=== PATIENT | male | born 1985 | race Asian ===

== ENCOUNTER 2017-02-04 19:02 | Emergency (ER) | payer MEDICARE, OTHER ==
[~2017-02-04 19:02] MED LIST: BENZ1TAB PO; CARB200T16 PO; CETI5SOL PO; FLUO-1 PO; MONT10 PO; RISP0.5T2 PO; TRAZ100 PO
[2017-02-04] MEDS ORDERED: LORazepam 1 MG TAB PO ONE (19:30)
[2017-02-04 19:33] VITALS: BP 173/79; PULSE 91; RESP 22; TEMP 98; O2SAT 99
[2017-02-04] MEDS ORDERED: RISP0.5T20 PO (19:49)
--- NOTE | 2017-02-04 20:34 | PD ---
HPI Chief Complaint: Psychiatric Symptoms Time Seen by Provider: 20:29 Travel History International Travel<30 days: No Contact w/Intl Traveler<30days: No Traveled to known affect area: No History of Present Illness HPI 31-year-old male that presents to the ED for evaluation of Rousseau act. Patient was Onelia acted by police after apparently he got agitated at the detention where he stays and he apparently was breaking the house and throwing things at people. Police was contacted and because he was being aggressive towards staff and other people he was Rousseau acted for the safety of other people. Patient has a chronic history of autism as well as mental retardation. Patient has the mental capacity for 3-year-old. Patient appears to be no acute distress. Complains of no pain. History is limited because of his mental disability. He is pleasant and cooperative with staff and police here in the ED. He has not shown any violence or aggressiveness towards anybody. Adoptive parents came and gave us the same story. Again history is limited because of patient's mental status but this appears to have happened yesterday. Appears to be moderate. PFSH Past Medical History Psychiatric: Yes (AUTISM AND MENTAL RETARDATION) Seizures: Yes Social History Alcohol Use: No Tobacco Use: No Substance Use: No Allergies-Medications (Allergen,Severity, Reaction): Coded Allergies: Biaxin (Verified Allergy, Mild, 02/04/17) Dextromethorphan (Verified Allergy, Mild, 02/04/17) Pseudoephedrine (Verified Allergy, Mild, 02/04/17) Ritalin (Verified Allergy, Mild, 02/04/17) Reported Meds & Prescriptions Reported Meds & Active Scripts Active Reported Risperdal (Risperidone) 0.5 Mg Tab 0.5 Mg PO 1PM Trazodone HCl 100 Mg Tab 100 Mg PO HS Cetirizine Hcl Allergy Ch (Cetirizine HCl) 5 Mg/5 Ml Georgina 10 PO DAILY Tegretol (Carbamazepine) 200 Mg Tab 400 Mg PO BID Benztropine Mesylate 1 Mg Tab 1 Mg PO DAILY Montelukast Sodium 10 Mg Tab 10 Mg PO HS Prozac (Fluoxetine HCl) 10 Mg Cap 10 PO DAILY Risperdal (Risperidone) 0.5 Mg Tab 1 Mg PO BID Review of Systems ROS Limitations: Poor Historian Except as stated in HPI: all other systems reviewed are Neg Physical Exam Exam Limitations: Poor Historian Narrative GENERAL: SKIN: Warm and dry. HEAD: Atraumatic. Normocephalic. EYES: Pupils equal and round. No scleral icterus. No injection or drainage. ENT: No nasal bleeding or discharge. Mucous membranes pink and moist. Tongue is midline. No uvula deviation. NECK: Trachea midline. No JVD. CARDIOVASCULAR: Regular rate and rhythm. No murmurs, S3, S4. RESPIRATORY: No accessory muscle use. Clear to auscultation. Breath sounds equal bilaterally. GASTROINTESTINAL: Abdomen soft, non-tender, nondistended. Hepatic and splenic margins not palpable. MUSCULOSKELETAL: Extremities without clubbing, cyanosis, or edema. No obvious deformities. Full range of motion of the upper and lower extremities bilaterally. 2+ pulses bilaterally. NEUROLOGICAL: Awake and alert. No obvious cranial nerve deficits. Motor grossly within normal limits. Five out of 5 muscle strength in the arms and legs. Normal speech. PSYCHIATRIC: Autistic mood and affect; insight and judgment not present Data Data Last Documented VS Vital Signs Date Time Temp Pulse Resp B/P Pulse Ox O2 Delivery O2 Flow Rate FiO2 02/04/17 21:44 88 20 152/76 99 Room Air 02/04/17 19:33 98.0 Orders Complete Blood Count With Diff (02/04/17 19:17) Comprehensive Metabolic Panel (02/04/17 19:17) Psych Screen (02/04/17 19:17) Drug Screen, Random Urine (02/04/17 19:17) ^ Sitter (02/04/17 19:20) Lorazepam (Ativan) (02/04/17 19:30) Labs Laboratory Tests Test 02/04/17 20:35 White Blood Count 6.9 TH/MM3 Red Blood Count 4.71 MIL/MM3 Hemoglobin 14.6 GM/DL Hematocrit 42.2 % Mean Corpuscular Volume 89.6 FL Mean Corpuscular Hemoglobin 31.0 PG Mean Corpuscular Hemoglobin 34.6 % Concent Red Cell Distribution Width 12.8 % Platelet Count 166 TH/MM3 Mean Platelet Volume 8.3 FL Neutrophils (%) (Auto) 60.2 % Lymphocytes (%) (Auto) 29.2 % Monocytes (%) (Auto) 8.4 % Eosinophils (%) (Auto) 1.7 % Basophils (%) (Auto) 0.5 % Neutrophils # (Auto) 4.1 TH/MM3 Lymphocytes # (Auto) 2.0 TH/MM3 Monocytes # (Auto) 0.6 TH/MM3 Eosinophils # (Auto) 0.1 TH/MM3 Basophils # (Auto) 0.0 TH/MM3 CBC Comment DIFF FINAL Differential Comment Sodium Level 140 MEQ/L Potassium Level 3.9 MEQ/L Chloride Level 104 MEQ/L Carbon Dioxide Level 29.1 MEQ/L Anion Gap 7 MEQ/L Blood Urea Nitrogen 15 MG/DL Creatinine 0.91 MG/DL Estimat Glomerular Filtration 96 ML/MIN Rate Random Glucose 97 MG/DL Calcium Level 8.7 MG/DL Total Bilirubin 0.2 MG/DL Aspartate Amino Transf 27 U/L (AST/SGOT) Alanine Aminotransferase 32 U/L (ALT/SGPT) Alkaline Phosphatase 117 U/L Total Protein 7.5 GM/DL Albumin 4.1 GM/DL MDM Medical Decision Making Medical Screen Exam Complete: Yes Emergency Medical Condition: Yes Medical Record Reviewed: Yes Interpretation(s) CBC & BMP Diagram 02/04/17 20:35 LFTs WNL Differential Diagnosis Depression versus suicidal ideation versus anxiety versus adjustment disorder versus mood disorder versus bipolar disorder versus schizophrenia versus paranoid disorder versus psychosis versus substance abuse versus alcohol abuse versus alcohol induced psychosis versus homicidality addition versus cutting versus personality disorder Narrative Course 31-year-old male that presents to the family psychiatric illness. Patient was properly examined and was found to have signs and symptoms consistent with appears to be tachetic illness. No sign of acute medical distress. Labs were drawn. Patient was medically cleared. Okay to be seen by psych. Patient was given Ativan to help calm the patient down. He has not been aggressive. Mental health screening was discussed with the patient. Diagnosis Primary Impression: Adjustment disorder with disturbance of conduct Javier Delaney Feb 04, 2017 20:33
[2017-02-04 20:50] LABS: AUTOMATED NEUTROPHIL # 4.1 TH/MM3 (1.8-7.7); BASOPHIL % 0.5 % (0.0-2.0); EOSINOPHIL # 0.1 TH/MM3 (0-0.4); EOSINOPHIL % 1.7 % (0.0-4.0); HEMATOCRIT 42.2 % (39.0-51.0); HEMO FLAGS DIFF FINAL; LYMPH % 29.2 % (9.0-44.0); MEAN CELL VOLUME 89.6 FL (80.0-100.0); MEAN CORPUSCULAR HGB CONC 34.6 % (32.0-36.0); MONO % 8.4 % (0.0-8.0); NEUT % 60.2 % (16.0-70.0); PLATELET COUNT 166 TH/MM3 (150-450); RED BLOOD COUNT 4.71 MIL/MM3 (4.50-5.90); RED CELL DISTRIBUTION WIDTH 12.8 % (11.6-17.2); WHITE BLOOD COUNT 6.9 TH/MM3 (4.0-11.0)
[2017-02-04 21:26] LABS: ALKALINE PHOSPHATASE 117 U/L (45-117); ALT (GPT) 32 U/L (12-78); ANION GAP 7 MEQ/L (5-15); AST (GOT) 27 U/L (15-37); BICARBONATE 29.1 MEQ/L (21.0-32.0); BLOOD UREA NITROGEN 15 MG/DL (7-18); CHLORIDE 104 MEQ/L (98-107); GLOMERULAR FILTRATION RATE 96 ML/MIN (>89); SODIUM (NA) 140 MEQ/L (136-145); TOTAL BILIRUBIN ADULT 0.2 MG/DL (0.2-1.0)
[2017-02-04 21:27] LABS: POTASSIUM 3.9 MEQ/L (3.5-5.1)
[2017-02-04 21:44] VITALS: BP 152/76; PULSE 88; RESP 20; O2SAT 99
[2017-02-04] MEDS ORDERED: traZODone HCL 100 MG TAB PO ONE (23:00)
--- NOTE | 2017-02-04 23:44 | PD ---
Data Data Last Documented VS Vital Signs Date Time Temp Pulse Resp B/P Pulse Ox O2 Delivery O2 Flow Rate FiO2 02/04/17 21:44 88 20 152/76 99 Room Air 02/04/17 19:33 98.0 Orders Complete Blood Count With Diff (02/04/17 19:17) Comprehensive Metabolic Panel (02/04/17 19:17) Psych Screen (02/04/17 19:17) Drug Screen, Random Urine (02/04/17 19:17) ^ Sitter (02/04/17 19:20) Lorazepam (Ativan) (02/04/17 19:30) Trazodone (Desyrel) (02/04/17 23:00) Diet Regular Basic (02/05/17 Breakfast) Labs Laboratory Tests Test 02/04/17 20:35 White Blood Count 6.9 TH/MM3 Red Blood Count 4.71 MIL/MM3 Hemoglobin 14.6 GM/DL Hematocrit 42.2 % Mean Corpuscular Volume 89.6 FL Mean Corpuscular Hemoglobin 31.0 PG Mean Corpuscular Hemoglobin 34.6 % Concent Red Cell Distribution Width 12.8 % Platelet Count 166 TH/MM3 Mean Platelet Volume 8.3 FL Neutrophils (%) (Auto) 60.2 % Lymphocytes (%) (Auto) 29.2 % Monocytes (%) (Auto) 8.4 % Eosinophils (%) (Auto) 1.7 % Basophils (%) (Auto) 0.5 % Neutrophils # (Auto) 4.1 TH/MM3 Lymphocytes # (Auto) 2.0 TH/MM3 Monocytes # (Auto) 0.6 TH/MM3 Eosinophils # (Auto) 0.1 TH/MM3 Basophils # (Auto) 0.0 TH/MM3 CBC Comment DIFF FINAL Differential Comment Sodium Level 140 MEQ/L Potassium Level 3.9 MEQ/L Chloride Level 104 MEQ/L Carbon Dioxide Level 29.1 MEQ/L Anion Gap 7 MEQ/L Blood Urea Nitrogen 15 MG/DL Creatinine 0.91 MG/DL Estimat Glomerular Filtration 96 ML/MIN Rate Random Glucose 97 MG/DL Calcium Level 8.7 MG/DL Total Bilirubin 0.2 MG/DL Aspartate Amino Transf 27 U/L (AST/SGOT) Alanine Aminotransferase 32 U/L (ALT/SGPT) Alkaline Phosphatase 117 U/L Total Protein 7.5 GM/DL Albumin 4.1 GM/DL [facility] Supervised Visit with GILLIAN: Yes Narrative Course Patient was initially cleared for psychiatric evaluation by Javier Delaney. Patient was being taken the J pod and when taken into the room again became very anxious. He was given Ativan by mouth prior to going over there. He was taken back to [facility] where he is much more comfortable. Patient briefly examined by me, severely mentally handicapped that he is quite pleasant. Has a mentality of a school-aged child. Appears well and in no obvious distress. No was no bruising seen. Patient does have trazodone on his bedtime medication reconciliation. He was given 100 mg of by mouth trazodone. We'll allow him to stay in [facility] for the night as he is a poor candidate for J pod. Remains medically cleared for psychiatric evaluation disposition. Diagnosis Primary Impression: Adjustment disorder with disturbance of conduct Condition: Stable Min Bender MD Feb 04, 2017 23:44
[2017-02-05 09:02] VITALS: BP 145/81; PULSE 84; RESP 16; TEMP 97.8; O2SAT 97
[2017-02-05 13:05] VITALS: BP 137/78; PULSE 87; RESP 18; O2SAT 99
== END 2017-02-05 13:24 ==
LOC: NEPC 19:02
DX: F43.24 Adjustment disorder with disturbance of conduct (principal)
CPT/HCPCS: 80053; 85025; 99283

== ENCOUNTER 2017-09-02 17:41 | Emergency (ER) | payer MEDICARE, OTHER ==
[~2017-09-02] VITALS: Ht 175.3 cm; Wt 65.0 kg
[~2017-09-02 17:41] MED LIST changes: -BENZ1TAB PO; -CARB200T16 PO; +CETI10CA3 PO; -CETI5SOL PO; -FLUO-1 PO; -MONT10 PO; +MONT10TA2 PO; +PROZ20CA11 PO; -RISP0.5T2 PO; +SERO100T PO; +SERO50TA PO; +TEGR400T PO; -TRAZ100 PO; +TRAZ100T10 PO
--- NOTE | 2017-09-02 18:57 | PD ---
HPI Chief Complaint: Psychiatric Symptoms Time Seen by Provider: 17:48 Travel History International Travel<30 days: No Contact w/Intl Traveler<30days: No Traveled to known affect area: No History of Present Illness HPI 32-year-old, just discharged from psychiatry, reported history of TBI to me, documented as a ASD. Patient reportedly violent at the [facility] destroyed property placed under Rousseau act again by PD. No complaints. History Past Medical History Narrative Medical Autism spectrum disorder Past Surgical History Surgical History: Unable to Obtain Social History Alcohol Use: No (UNABLE TO ASSESS) Tobacco Use: No (UNABLE TO ASSESS) Allergies-Medications (Allergen,Severity, Reaction): Coded Allergies: clarithromycin (Unverified Allergy, Mild, 09/02/17) dextromethorphan (Unverified Allergy, Mild, 09/02/17) methylphenidate (Unverified Allergy, Mild, 09/02/17) pseudoephedrine (Unverified Allergy, Mild, 09/02/17) Reported Meds & Prescriptions Reported Meds & Active Scripts Active Reported Prozac (Fluoxetine HCl) 20 Mg Cap 20 Mg PO DAILY Seroquel (Quetiapine Fumarate) 100 Mg Tab 100 Mg PO BID PT IS TO TAKE 100 MG AFTERNOON AROUNG 1PM AND 100MG AT 2000 Seroquel (Quetiapine Fumarate) 50 Mg Tab 50 Mg PO DAILY PT IS TO TAKE 50 IN THE MORNING Trazodone (Trazodone HCl) 100 Mg Tablet 100 Mg PO HS Tegretol-Xr 12 HR (Carbamazepine) 400 Mg Tab 400 Mg PO Q12HR Zyrtec (Cetirizine HCl) 10 Mg Capsule 1 Cap PO DAILY Singulair (Montelukast Sodium) 10 Mg Tab 10 Mg PO DAILY Review of Systems ROS Limitations: Clinical Condition Physical Exam Narrative GENERAL: 32-year-old man, generally well-appearing, pacing, all active but not agitated. SKIN: Focused skin assessment warm/dry. HEAD: Atraumatic. Normocephalic. EYES: Pupils equal and round. No scleral icterus. No injection or drainage. ENT: No nasal bleeding or discharge. Mucous membranes pink and moist. NECK: Trachea midline. No JVD. CARDIOVASCULAR: Warm and well perfused. RESPIRATORY: Normal rate and effort. GASTROINTESTINAL: Abdomen soft, non-tender, nondistended. Hepatic and splenic margins not palpable. MUSCULOSKELETAL: No obvious deformities. No clubbing. No cyanosis. No edema. NEUROLOGICAL: Awake and alert. Confused, unable to interact appropriately. No obvious cranial nerve deficits. Motor grossly within normal limits. Normal speech. Data Data Orders Orders Carbamazepine (Tegretol) (09/02/17 21:00) Trazodone (Desyrel) (09/02/17 21:00) Quetiapine (Seroquel) (09/03/17 18:00) Quetiapine (Seroquel) (09/02/17 20:00) Quetiapine (Seroquel) (09/03/17 09:00) Fluoxetine (Prozac) (09/03/17 09:00) Diet Regular Basic (09/02/17 Dinner) Psych Screen (09/02/17 18:38) [facility] Medical Decision Making Medical Screen Exam Complete: Yes Emergency Medical Condition: Yes Differential Diagnosis Autism spectrum disorder with behavioral disturbance, agitation, other Narrative Course 32-year-old male with autism spectrum disorder behavior disturbance or presents with aggressive behavior. Calm and cooperative now. Reportedly extended stay recently in the ED with disposition decision. Report was that his [facility] wouldn't take him back until he was seen by Dr. Medina and had his medications adjusted. Reportedly Dr. Mcdowell did adjust his medications and the [facility] agreed to take him back but he is back now. He has no somatic complaints. I tried to call Dr. Salomon who I believe it seen him earlier today. There is no answer. J pod we'll try to contact psychiatry to see if you've a candidate for admission now, otherwise psych screen and further evaluation. Diagnosis Primary Impression: Behavior disturbance Kun Robles MD Sep 02, 2017 18:57
[2017-09-02] MEDS ORDERED: QUEtiapine FUMARATE 100 MG TAB PO SCH (20:00)
[2017-09-02] MEDS: carBAMazepine 200 MG TAB PO SCH (21:06)
[2017-09-02] MEDS: traZODone HCL 100 MG TAB PO SCH (21:06)
[2017-09-02 21:18] VITALS: BP 114/73; PULSE 88; RESP 18; TEMP 97; O2SAT 99
[2017-09-03] MEDS ORDERED: FLUoxetine HCL 20 MG CAP PO SCH (09:00)
[2017-09-03] MEDS ORDERED: QUEtiapine FUMARATE 25 MG TAB PO SCH (09:00)
[2017-09-03] MEDS: carBAMazepine 200 MG TAB PO SCH ×2 (09:16→21:00)
--- NOTE | 2017-09-03 10:08 | PD ---
History of Present Illness Chief Complaint: Psychiatric Symptoms Time Seen by Provider: 10:00 Travel History International Travel<30 Days: No Contact w/Intl Traveler<30days: No Known affected area: No Legal Status Legal Status: Rousseau Act Rousseau Act Signed By: Sandie Mendez History of Present Illness: Inappropriate Rousseau act of a developmentally disabled person who was here yesterday. Apparently the [place] [facility] where he resides continues to want to get rid of him and has him Rousseau acted. Patient is not suicidal or homicidal or psychotic. His cognition is baseline. According to Rousseau act law, the civil commitment of someone with a primary issue of mental retardation is inappropriate. PFSH Past Medical History Depression: Yes Psychiatric: Yes (AUTISM AND MENTAL RETARDATION) Seizures: Yes Past Surgical History Surgical History: Unable to Obtain Psychiatric History Psychiatric History Hx Psychiatric Treatment: HX: INTELLECTUAL DISABILITY History of Inpatient Treatment: No Guns or firearms in home: No Social History Hx Alcohol Use: No (UNABLE TO ASSESS) Hx Tobacco Use: No (UNABLE TO ASSESS) Hx Substance Use: No Hx of Substance Use Treatment: No Allergies-Medications (Allergen,Severity, Reaction): Coded Allergies: clarithromycin (Unverified Allergy, Mild, 09/02/17) dextromethorphan (Unverified Allergy, Mild, 09/02/17) methylphenidate (Unverified Allergy, Mild, 09/02/17) pseudoephedrine (Unverified Allergy, Mild, 09/02/17) Reported Meds & Prescriptions Reported Meds & Active Scripts Active Reported Prozac (Fluoxetine HCl) 20 Mg Cap 20 Mg PO DAILY Seroquel (Quetiapine Fumarate) 100 Mg Tab 100 Mg PO BID PT IS TO TAKE 100 MG AFTERNOON AROUNG 1PM AND 100MG AT 2000 Seroquel (Quetiapine Fumarate) 50 Mg Tab 50 Mg PO DAILY PT IS TO TAKE 50 IN THE MORNING Trazodone (Trazodone HCl) 100 Mg Tablet 100 Mg PO HS Tegretol-Xr 12 HR (Carbamazepine) 400 Mg Tab 400 Mg PO Q12HR Zyrtec (Cetirizine HCl) 10 Mg Capsule 1 Cap PO DAILY Singulair (Montelukast Sodium) 10 Mg Tab 10 Mg PO DAILY Review of Systems Except as stated in HPI: all other systems reviewed are Neg Mental Status Examination Appearance: Appropriate Consciousness: Alert Orientation: Person, Place Motor Activity: Normal gait Speech: Other Language: Other Fund of Knowledge: Poor Attention and Concentration: Other Memory: Impaired Mood: Appropriate Affect: Appropriate Thought Process & Associations: Intact Thought Content: Appropriate Hallucination Type: None Delusion Type: None Suicidal Ideation: No Suicidal Plan: No Suicidal Intention: No Homicidal Ideation: No Homicidal Plan: No Homicidal Intention: No Insight: Fair Judgment: Impulsive MDM Medical Decision Making Medical Record Reviewed: Yes Assessment/Plan 32-year-old male brought in under a Rousseau act. Patient examined by this physician. Medical record reviewed. Case discussed with nurses. Still felt to be inappropriate Rousseau act. It appears that the [place] [facility] is attempting to "dump" the patient on this hospital. Patient can certainly be treated on an outpatient basis. Orders Orders Carbamazepine (Tegretol) (09/02/17 21:00) Trazodone (Desyrel) (09/02/17 21:00) Quetiapine (Seroquel) (09/03/17 18:00) Quetiapine (Seroquel) (09/02/17 20:00) Quetiapine (Seroquel) (09/03/17 09:00) Fluoxetine (Prozac) (09/03/17 09:00) Diet Regular Basic (09/02/17 Dinner) Psych Screen (09/02/17 18:38) Diet Regular Basic (09/03/17 Breakfast) Results Vital Signs Date Time Temp Pulse Resp B/P (MAP) Pulse Ox O2 Delivery O2 Flow Rate FiO2 09/02/17 21:18 97.0 88 18 114/73 (87) 99 Room Air Diagnosis Primary Impression: Mental retardation Andrea Salomon MD Sep 03, 2017 10:08
[2017-09-03 13:48] VITALS: BP 154/100; PULSE 104; RESP 20; TEMP 98.2; O2SAT 98
[2017-09-03] MEDS ORDERED: QUEtiapine FUMARATE 100 MG TAB PO SCH (18:00)
[2017-09-03 18:25] VITALS: BP 128/74; PULSE 91; RESP 18; TEMP 98.2; O2SAT 96
[2017-09-03] MEDS ORDERED: risperiDONE 1 MG TAB PO ONE (20:30)
[2017-09-03] MEDS: traZODone HCL 100 MG TAB PO SCH (21:00)
[2017-09-04 06:36] VITALS: BP 128/81; PULSE 97; RESP 16; TEMP 98.5; O2SAT 100
--- NOTE | 2017-09-04 08:18 | PD ---
Physical Exam Time Seen by Provider: 08:[address] Salomon has evaluated the patient, lifted Onelia garcia and cleared The patient for discharge. Data Data Last Documented VS Vital Signs Date Time Temp Pulse Resp B/P (MAP) Pulse Ox O2 Delivery O2 Flow Rate FiO2 09/04/17 06:36 98.5 97 16 128/81 (97) 100 Room Air Orders Orders Carbamazepine (Tegretol) (09/02/17 21:00) Trazodone (Desyrel) (09/02/17 21:00) Quetiapine (Seroquel) (09/03/17 18:00) Quetiapine (Seroquel) (09/02/17 20:00) Quetiapine (Seroquel) (09/03/17 09:00) Fluoxetine (Prozac) (09/03/17 09:00) Diet Regular Basic (09/02/17 Dinner) Psych Screen (09/02/17 18:38) Diet Regular Basic (09/03/17 Breakfast) Diet Regular Basic (09/03/17 Lunch) Diet Regular Basic (09/03/17 Dinner) Risperidone (Risperdal) (09/03/17 20:30) Diet Regular Basic (09/04/17 Breakfast) MDM Supervised Visit with GILLIAN: No Narrative Course Dr. Salomon has evaluated the patient, lifted Onelia act and cleared The patient for discharge. The patient's parents are here to pick him up. The patient is mentally challenged and has been having difficulty getting placed back into a care home. The care home that he was originally in would not take him back. Patient will be provided community resource packet to /JENI for follow-up. Has friends and family for support. Patient is medically cleared for discharge. Diagnosis Primary Impression: Mental retardation Referrals: [facility] (Out patient) [facility] Primary Care Physician Psychiatrist [facility] Additional Instruction: Contract safety to your self and others Follow-up with psychiatry Follow-up with primary care provider Follow-up with Anupam Randolph Return to the emergency department immediately with worsening of symptoms Med/Other Pt SpecificInfo: No Change to Meds, No Meds Exist/No RX given Disposition: 01 DISCHARGE HOME Condition: Stable Makenna Adkins BREWERY [employer] WORK[employer] Sep 04, 2017 08:18
== END 2017-09-04 08:47 | disposition home or self-care (01) ==
LOC: NEPC 17:41 → NEPJ 09-04 08:47
DX: F84.0 Autistic disorder (principal); F79 Unspecified intellectual disabilities; F32.9 Major depressive disorder, single episode, unspecified; Z87.820 Personal history of traumatic brain injury; Q21.1 Atrial septal defect
CPT/HCPCS: 96372; 99284; J1630

== ENCOUNTER 2018-01-09 09:33 | Inpatient (IN) | payer MEDICARE, OTHER ==
[~2018-01-09] VITALS: Ht 170.2 cm; Wt 97.2 kg
[2018-01-09 09:49] VITALS: BP 115/73; PULSE 78; RESP 18; TEMP 98.4; O2SAT 98
[2018-01-09] MEDS ORDERED: TRAZ1TAB14 PO (10:09)
[2018-01-09] MEDS ORDERED: MONT10TA4 PO (10:09)
[2018-01-09] MEDS ORDERED: RISP3 PO (10:12)
--- NOTE | 2018-01-09 10:18 | PD ---
HPI Chief Complaint: Psychiatric Symptoms Time Seen by Provider: 10:03 Travel History International Travel<30 days: No Contact w/Intl Traveler<30days: No Traveled to known affect area: No History of Present Illness HPI 32-year-old male with history of autism, and behavioral disorder, was brought in by his parents with reports of increased behavioral disturbances and acting out violently. Patient has a history of this in the past. Patient was recently seen by his own psychiatrist several days ago and some of his meds were changed, but the parents state no change. Patient seems to be exhibiting behaviors when he wants to do something specific. Patient actually asked to come into the hospital today. He is verbally limited. He is an unreliable historian. He is allergic to clarithromycin, dextromethorphan, methylphenidate , and pseudoephedrine. Diphenhydramine makes him anxious. PFSH Past Medical History Depression: Yes Psychiatric: Yes (AUTISM AND MENTAL RETARDATION) Seizures: Yes Social History Alcohol Use: No (UNABLE TO ASSESS) Tobacco Use: No (UNABLE TO ASSESS) Substance Use: No Allergies-Medications (Allergen,Severity, Reaction): Coded Allergies: clarithromycin (Unverified Allergy, Mild, 09/02/17) dextromethorphan (Unverified Allergy, Mild, 09/02/17) methylphenidate (Unverified Allergy, Mild, 09/02/17) pseudoephedrine (Unverified Allergy, Mild, 09/02/17) Reported Meds & Prescriptions Reported Meds & Active Scripts Active Reported Risperdal (Risperidone) 3 Mg Tab 3 Mg PO DAILY Montelukast (Montelukast Sodium) 10 Mg Tab 10 Mg PO HS Trazodone (Trazodone HCl) 150 Mg Tablet 150 Mg PO HS Tegretol-Xr 12 HR (Carbamazepine) 400 Mg Tab 400 Mg PO Q12HR Zyrtec (Cetirizine HCl) 10 Mg Capsule 1 Cap PO DAILY Singulair (Montelukast Sodium) 10 Mg Tab 10 Mg PO DAILY Review of Systems ROS Limitations: Clinical Condition, Speech Impaired, Poor Historian General / Constitutional: No: Fever Eyes: No: Visual changes HENT: No: Headaches Cardiovascular: No: Chest Pain or Discomfort Respiratory: No: Shortness of Breath Gastrointestinal: No: Abdominal Pain Genitourinary: No: Dysuria Musculoskeletal: No: Pain Skin: No Rash Neurologic: No: Weakness Psychiatric: No: Depression Endocrine: No: Polydipsia Hematologic/Lymphatic: No: Easy Bruising Physical Exam Narrative GENERAL: Patient appears in no acute distress. He is cooperative during my exam per SKIN: Warm and dry. Normal color. Normal turgor. No signs of trauma HEAD: Atraumatic. Normocephalic. EYES: Pupils equal and round. No scleral icterus. No injection or drainage. ENT: No nasal bleeding or discharge. Mucous membranes pink and moist. Pharynx is clear. Airways patent. NECK: Trachea midline. Supple nontender. CARDIOVASCULAR: Regular rate and rhythm. RESPIRATORY: No accessory muscle use. Clear to auscultation. Breath sounds equal bilaterally. GASTROINTESTINAL: Abdomen soft, non-tender, nondistended. Hepatic and splenic margins not palpable. MUSCULOSKELETAL: Extremities without clubbing, cyanosis, or edema. No obvious deformities. NEUROLOGICAL: Awake and alert. No obvious cranial nerve deficits. Motor grossly within normal limits. Five out of 5 muscle strength in the arms and legs. Limited speech. Data Data Last Documented VS Vital Signs Date Time Temp Pulse Resp B/P (MAP) Pulse Ox O2 Delivery O2 Flow Rate FiO2 01/09/18 09:49 98.4 78 18 115/73 (87) 98 Orders Orders Complete Blood Count With Diff (01/09/18 10:04) Comprehensive Metabolic Panel (01/09/18 10:04) Thyroid Stimulating Hormone (01/09/18 10:04) Urinalysis - C+S If Indicated (01/09/18 10:04) Psych Screen (01/09/18 10:04) Drug Screen, Random Urine (01/09/18 10:04) Lorazepam (Ativan) (01/09/18 11:15) Diphenhydramine (Benadryl) (01/09/18 11:15) Diet Regular Basic (01/09/18 Lunch) Labs Laboratory Tests Test 01/09/18 10:26 01/09/18 10:40 White Blood Count 5.5 TH/MM3 Red Blood Count 4.61 MIL/MM3 Hemoglobin 14.6 GM/DL Hematocrit 41.3 % Mean Corpuscular Volume 89.8 FL Mean Corpuscular Hemoglobin 31.6 PG Mean Corpuscular Hemoglobin Concent 35.2 % Red Cell Distribution Width 12.9 % Platelet Count 179 TH/MM3 Mean Platelet Volume 7.6 FL Neutrophils (%) (Auto) 70.4 % Lymphocytes (%) (Auto) 21.7 % Monocytes (%) (Auto) 5.4 % Eosinophils (%) (Auto) 2.1 % Basophils (%) (Auto) 0.4 % Neutrophils # (Auto) 3.9 TH/MM3 Lymphocytes # (Auto) 1.2 TH/MM3 Monocytes # (Auto) 0.3 TH/MM3 Eosinophils # (Auto) 0.1 TH/MM3 Basophils # (Auto) 0.0 TH/MM3 CBC Comment DIFF FINAL Differential Comment Blood Urea Nitrogen 12 MG/DL Creatinine 0.71 MG/DL Random Glucose 90 MG/DL Total Protein 7.0 GM/DL Albumin 3.8 GM/DL Calcium Level 8.4 MG/DL Alkaline Phosphatase 111 U/L Aspartate Amino Transf (AST/SGOT) 18 U/L Alanine Aminotransferase (ALT/SGPT) 28 U/L Total Bilirubin 0.4 MG/DL Sodium Level 137 MEQ/L Potassium Level 3.6 MEQ/L Chloride Level 104 MEQ/L Carbon Dioxide Level 26.0 MEQ/L Anion Gap 7 MEQ/L Estimat Glomerular Filtration Rate 127 ML/MIN Thyroid Stimulating Hormone 3rd Gen 0.967 uIU/ML Urine Color LIGHT-YELLOW Urine Turbidity CLEAR Urine pH 7.0 Urine Specific [place] 1.011 Urine Protein NEG mg/dL Urine Glucose (UA) NEG mg/dL Urine Ketones NEG mg/dL Urine Occult Blood NEG Urine Nitrite NEG Urine Bilirubin NEG Urine Urobilinogen LESS THAN 2.0 MG/DL Urine Leukocyte Esterase NEG Urine RBC LESS THAN 1 /hpf Urine WBC LESS THAN 1 /hpf Urine Squamous Epithelial Cells <1 /hpf Urine Mucus FEW /lpf Microscopic Urinalysis Comment CULT NOT INDICATED Urine Opiates Screen NEG Urine Barbiturates Screen NEG Urine Amphetamines Screen NEG Urine Benzodiazepines Screen NEG Urine Cocaine Screen NEG Urine Cannabinoids Screen NEG MDM Medical Decision Making Medical Screen Exam Complete: Yes Emergency Medical Condition: Yes Medical Record Reviewed: Yes Differential Diagnosis Behavioral disorders. MR. Coleman. Narrative Course Psychiatric labs ordered as per protocol. Patient is given we will 2 mg lorazepam p.o. Labs are unremarkable. Patient is medically cleared for psychiatric evaluation. Condition: Stable Rivera August Jan 09, 2018 10:18
[2018-01-09 10:54] LABS: AUTOMATED NEUTROPHIL # 3.9 TH/MM3 (1.8-7.7); BASOPHIL % 0.4 % (0.0-2.0); EOSINOPHIL # 0.1 TH/MM3 (0-0.4); EOSINOPHIL % 2.1 % (0.0-4.0); HEMATOCRIT 41.3 % (39.0-51.0); HEMOGLOBIN 14.6 GM/DL (13.0-17.0); LYMPH % 21.7 % (9.0-44.0); LYMPHOCYTE # 1.2 TH/MM3 (1.0-4.8); MEAN CELL VOLUME 89.8 FL (80.0-100.0); MEAN CORPUSCULAR HEMOGLOBIN 31.6 PG (27.0-34.0); MEAN CORPUSCULAR HGB CONC 35.2 % (32.0-36.0); MEAN PLATELET VOLUME 7.6 FL (7.0-11.0); MONO % 5.4 % (0.0-8.0); MONOCYTE # 0.3 TH/MM3 (0-0.9); NEUT % 70.4 % (16.0-70.0); PLATELET COUNT 179 TH/MM3 (150-450); RED BLOOD COUNT 4.61 MIL/MM3 (4.50-5.90); RED CELL DISTRIBUTION WIDTH 12.9 % (11.6-17.2); WHITE BLOOD COUNT 5.5 TH/MM3 (4.0-11.0)
[2018-01-09 10:57] LABS: ALBUMIN 3.8 GM/DL (3.4-5.0); AST (GOT) 18 U/L (15-37); BLOOD UREA NITROGEN 12 MG/DL (7-18); CALCIUM 8.4 MG/DL (8.5-10.1); CHLORIDE 104 MEQ/L (98-107); CREATININE 0.71 MG/DL (0.60-1.30); GLOMERULAR FILTRATION RATE 127 ML/MIN (>89); GLUCOSE,RANDOM 90 MG/DL (74-106); SODIUM (NA) 137 MEQ/L (136-145)
[2018-01-09 10:58] LABS: ALT (GPT) 28 U/L (12-78)
[2018-01-09 11:08] LABS: ALKALINE PHOSPHATASE 111 U/L (45-117); TOTAL BILIRUBIN ADULT 0.4 MG/DL (0.2-1.0)
[2018-01-09] MEDS ORDERED: LORazepam 2 MG TAB PO ONE (11:15)
[2018-01-09] MEDS ORDERED: diphenhydrAMINE HCL 50 MG CAP PO ONE (11:15)
[2018-01-09 11:39] LABS: BILIRUBIN, URINE NEG (NEG); BLOOD, URINE NEG (NEG); GLUCOSE,URINE NEG (NEG); KETONE, URINE NEG (NEG); MUCUS URINE FEW /lpf (OCC); NITRITE,URINE NEG (NEG); SQUAMOUS EPITHELIAL CELL URINE <1 /hpf (0-5); URINE COLOR LIGHT-YELLOW (YELLW/STRAW); URINE LEUKOCYTE ESTERASE NEG (NEG)
[2018-01-09] MEDS ORDERED: ZIPRASIDONE MESYLATE 20 MG VIAL IM ONE (15:50)
--- NOTE | 2018-01-09 18:49 | PD ---
History of Present Illness Chief Complaint: Psychiatric Symptoms Time Seen by Provider: 18:00 Travel History International Travel<30 Days: No Contact w/Intl Traveler<30days: No Known affected area: No Legal Status Legal Status: Voluntary History of Present Illness: History of Present Illness This note serves as ED note as well as [id number] evaluation for seclusion. 32-year-old male with history of autism, intellectual disability, poor impulse control, who was brought in by his parents for psychiatric evaluation and medication adjustment with reports of increased behavioral disturbances and increase in violent behavior. This patient is known to [facility] ED as well as psychiatry Department from previous visits to the ED for similar complaints. He had been living in an [facility] back in September but they were unable to manage his behavior. He is now living with his elderly parents and they are waiting for placement in an [facility] that can accommodate his behaviors. The mother reports that the patient's outpatient psychiatrist increase his medications last week but they have not seen any improvement. They also report that he has not been sleeping on current medications which include risperidone and trazodone. Patient arrived on J pod and he was agitated and walking into other patient's room, not accepting verbal redirection. He required seclusion for safety. After he was released from seclusion he continued to pace around the unit wandering into other patient's rooms, crawled underneath the sink and would not get out, not accepting verbal redirection, and required ETO due to increased agitation. He has refused to change into hospital attire as well. The patietn answers only basic questions due to his intellectual disability. I have consulted this case with Dr. Amaya, on-call psychiatrist. Based on current behavior and the inability of parents to manage his behavior in the home , recent failed medication adjustments by outpatient psychiatrist the patient will be admitted to inpatient psychiatric unit. PFSH Past Medical History Depression: Yes Neurologic: Yes (1/2 brain function per parents) Psychiatric: Yes (AUTISM AND MENTAL RETARDATION) Seizures: Yes Influenza Vaccination: Yes Psychiatric History Psychiatric History Hx Psychiatric Treatment: HX: INTELLECTUAL DISABILITY, utism. Out[patietn psychiatris is Dr. Medina History of Inpatient Treatment: No Guns or firearms in home: No Social History Lives with parents. Single. Hx Alcohol Use: No ( ) Hx Tobacco Use: No ( ) Hx Substance Use: No Hx of Substance Use Treatment: No Family Psychiatric History Unable to obtain. Allergies-Medications (Allergen,Severity, Reaction): Coded Allergies: clarithromycin (Unverified Allergy, Mild, 09/02/17) dextromethorphan (Unverified Allergy, Mild, 09/02/17) methylphenidate (Unverified Allergy, Mild, 09/02/17) pseudoephedrine (Unverified Allergy, Mild, 09/02/17) Reported Meds & Prescriptions Reported Meds & Active Scripts Active Reported Risperdal (Risperidone) 3 Mg Tab 3 Mg PO DAILY Montelukast (Montelukast Sodium) 10 Mg Tab 10 Mg PO HS Trazodone (Trazodone HCl) 150 Mg Tablet 150 Mg PO HS Tegretol-Xr 12 HR (Carbamazepine) 400 Mg Tab 400 Mg PO Q12HR Zyrtec (Cetirizine HCl) 10 Mg Capsule 1 Cap PO DAILY Singulair (Montelukast Sodium) 10 Mg Tab 10 Mg PO DAILY Review of Systems ROS Limitations: Poor Historian Mental Status Examination Appearance: Appropriate (clean .) Consciousness: Alert Orientation: Person, Place Motor Activity: Normal gait Speech: Slow, Other (basic 1 - 2 word answers.) Language: Other (minimal responses) Fund of Knowledge: Poor Attention and Concentration: Inadequate Memory: Impaired Mood: Other (labile) Affect: Appropriate Thought Process & Associations: Other (limited verbalizations. Intellectual disability) Thought Content: Other Hallucination Type: None Delusion Type: None Suicidal Ideation: No Suicidal Plan: No Suicidal Intention: No Homicidal Ideation: No Homicidal Plan: No Homicidal Intention: No Insight: Poor Judgment: Poor MDM Medical Decision Making Medical Record Reviewed: Yes Assessment/Plan 32-year-old male with history of autism, intellectual disability, poor impulse control, who was brought in by his parents for psychiatric evaluation and medication adjustment with reports of increased behavioral disturbances and increase in violent behavior. This patient is known to [facility] ED as well as psychiatry Department from previous visits to the ED for similar complaints. He had been living in an [facility] back in September but they were unable to manage his behavior. He is now living with his elderly parents and they are waiting for placement in an [facility] that can accommodate his behaviors. The mother reports that the patient's outpatient psychiatrist increase his medications last week but they have not seen any improvement. They also report that he has not been sleeping on current medications which include risperidone and trazodone.At this time the patient cannot be safely managed by parents in the home and requires inpatient treatment for stabilization, safety and medication adjustment. Orders Orders Complete Blood Count With Diff (01/09/18 10:04) Comprehensive Metabolic Panel (01/09/18 10:04) Thyroid Stimulating Hormone (01/09/18 10:04) Urinalysis - C+S If Indicated (01/09/18 10:04) Psych Screen (01/09/18 10:04) Drug Screen, Random Urine (01/09/18 10:04) Lorazepam (Ativan) (01/09/18 11:15) Diphenhydramine (Benadryl) (01/09/18 11:15) Diet Regular Basic (01/09/18 Lunch) Restraints Violent (01/09/18 14:00) Ziprasidone Inj (Geodon Inj) (01/09/18 15:50) Restraints Violent (01/09/18 16:03) Diet Regular Basic (01/09/18 Dinner) Results Vital Signs Date Time Temp Pulse Resp B/P (MAP) Pulse Ox O2 Delivery O2 Flow Rate FiO2 01/09/18 09:49 98.4 78 18 115/73 (87) 98 Laboratory Tests Test 01/09/18 10:26 01/09/18 10:40 White Blood Count 5.5 Red Blood Count 4.61 Hemoglobin 14.6 Hematocrit 41.3 Mean Corpuscular Volume 89.8 Mean Corpuscular Hemoglobin 31.6 Mean Corpuscular Hemoglobin Concent 35.2 Red Cell Distribution Width 12.9 Platelet Count 179 Mean Platelet Volume 7.6 Neutrophils (%) (Auto) 70.4 Lymphocytes (%) (Auto) 21.7 Monocytes (%) (Auto) 5.4 Eosinophils (%) (Auto) 2.1 Basophils (%) (Auto) 0.4 Neutrophils # (Auto) 3.9 Lymphocytes # (Auto) 1.2 Monocytes # (Auto) 0.3 Eosinophils # (Auto) 0.1 Basophils # (Auto) 0.0 CBC Comment DIFF FINAL Differential Comment Blood Urea Nitrogen 12 Creatinine 0.71 Random Glucose 90 Total Protein 7.0 Albumin 3.8 Calcium Level 8.4 Alkaline Phosphatase 111 Aspartate Amino Transf (AST/SGOT) 18 Alanine Aminotransferase (ALT/SGPT) 28 Total Bilirubin 0.4 Sodium Level 137 Potassium Level 3.6 Chloride Level 104 Carbon Dioxide Level 26.0 Anion Gap 7 Estimat Glomerular Filtration Rate 127 Thyroid Stimulating Hormone 3rd Gen 0.967 Urine Color LIGHT-YELLOW Urine Turbidity CLEAR Urine pH 7.0 Urine Specific [place] 1.011 Urine Protein NEG Urine Glucose (UA) NEG Urine Ketones NEG Urine Occult Blood NEG Urine Nitrite NEG Urine Bilirubin NEG Urine Urobilinogen LESS THAN 2.0 Urine Leukocyte Esterase NEG Urine RBC LESS THAN 1 Urine WBC LESS THAN 1 Urine Squamous Epithelial Cells <1 Urine Mucus FEW Microscopic Urinalysis Comment CULT NOT INDICATED Urine Opiates Screen NEG Urine Barbiturates Screen NEG Urine Amphetamines Screen NEG Urine Benzodiazepines Screen NEG Urine Cocaine Screen NEG Urine Cannabinoids Screen NEG Diagnosis Primary Impression: Impulse control disorder Additional Impressions: Autism spectrum disorder Intellectual disability Admitting Information Admitting Physician Requests: Admit Condition: Stable Problem Qualifiers Aliyah Manriquez Jan 09, 2018 18:49
[2018-01-09 19:00] VITALS: BP 119/68; PULSE 77; RESP 20; TEMP 98.6; O2SAT 96
[2018-01-09] MEDS ORDERED: MAGNESIUM HYDROXIDE SUSP 30 ML CUP PO PRN (19:00)
[2018-01-09] MEDS ORDERED: ALUMINUM/MAGNESIUM/SIMETH 30 ML CUP PO PRN (19:00)
[2018-01-09] MEDS ORDERED: ACETAMINOPHEN 325 MG TAB PO PRN (19:00)
[2018-01-09 20:45] VITALS: BP 114/81; PULSE 70; RESP 18; TEMP 97.4; O2SAT 100
[2018-01-09] MEDS ORDERED: diphenhydrAMINE HCL 50 MG/ML VIAL ONE (21:35)
[2018-01-09] MEDS ORDERED: OLANZapine IM 10 MG VIAL IM ONE ×2 (21:36→21:45)
[2018-01-09] MEDS ORDERED: LORazepam 2 MG/ML VIAL IM ONE (21:45)
[2018-01-09] MEDS ORDERED: diphenhydrAMINE HCL 50 MG/ML VIAL IM ONE (21:45)
[2018-01-10 06:18] VITALS: BP 122/62; PULSE 70; RESP 18; TEMP 97.7; O2SAT 97
[2018-01-10] MEDS ORDERED: OLANZapine IM 10 MG VIAL IM ONE ×2 (10:34→11:30)
[2018-01-10] MEDS ORDERED: diphenhydrAMINE HCL 50 MG/ML VIAL ONE (10:34)
[2018-01-10] MEDS ORDERED: LORazepam 2 MG/ML VIAL ONE (10:34)
[2018-01-10] MEDS ORDERED: diphenhydrAMINE HCL 50 MG/ML VIAL IM ONE ×2 (11:30→16:30)
[2018-01-10] MEDS ORDERED: LORazepam 2 MG/ML VIAL IM ONE ×2 (11:30→16:30)
[2018-01-10] MEDS ORDERED: ACETAMINOPHEN 325 MG TAB PO PRN (12:00)
--- NOTE | 2018-01-10 12:08 | HHI.HP ---
Provisional Diagnosis Admission Date Jan 09, 2018 at 17:51 [place] I. Autism spectrum disorder t 32.0, impulse control disorder Certification of Person's Competence To Provide Express and Informed Consent I have personally examined Cayden Bro , a person being served at [facility] on, Jan 10, 2018 11:58. Express and informed consent means consent voluntarily given in writing, by a competent person, after sufficient explanation and disclosure of the subject matter involved to enable the person to make a knowing and willful decision without any element of force, fraud, deceit, duress, or other form of constraint or coercion. This person is 18 years of age or older, is not now known to be incompetent to consent to treatment with a guardian advocate, and does not have a health care surrogate or proxy currently making medical treatment decisions. I have found this person to be one of the following: [] Competent to provide express and informed consent, as defined above, for voluntary admission to this facility and is competent to provide express and informed consent for treatment. He/she has the consistent capacity to make well reasoned, willful, and knowing decisions concerning his or her medical or mental health treatment. The person fully and consistently understands the purpose of the admission for examination/placement and is fully capable of personally exercising all rights assured [place]xxx] Incompetent to provide express and informed consent to voluntary admission , and this is incompetent to provide express and informed consent to treatment. The person must be transferred to involuntary status and a petition for a guardian advocate filed with the Circuit Court. [] Refusing to provide express and informed consent to voluntary admission but is competent to provide express and informed consent for treatment. The person must be discharged or transferred to involuntary status. Form shall be completed within 24 hours of a person's arrival at the receiving facility and filed in the clinical record of each person: 1. Admitted on a voluntary basis 2. Permitted to provide express and informed consent to his/her own treatment 3. Allowed to transfer from involuntary to voluntary status 4. Prior to permitting a person to consent to his or her own treatment after having been previously found incompetent to consent to treatment. History of Present Illness Capacity: Lacks Capacity HPI Patient 32-year-old Syri[place] male adopted by his parents at about 10 months of age comes here under Rousseau act signed by Aliyah HUTCHINS dated January 09, 2018 at 6 PM stating autism impulse control disorder, that she document reviewed and agreed with also states the patient was increasing in aggressive behavior towards parents not sleeping failed medication adjustments. Patient is an outpatient with Dr. pino. Patient was initially seen by me Christine pod with the nurse practitioner patient severely autistic very infantile and his responses markedly explosive impulsive violent screaming kicking and hitting and biting. This necessitated an ETO of Zyprexa Ativan and Benadryl in the J pod patient did respond to it and had a fairly good night. Today on 0 patient is again out of control the sustain another repeat of that he ETO. However he is still alert angry volatile and impulsive. He is being kept on the short-haul at the present time. Patient has had multiple visits with us. The to contact patient's adoptive parents who are elderly to discuss future treatment medications and possible placement alternatives it appears her return with the patient's parents may not be a safe placement Review of Systems ROS Limitations: Clinical Condition, Other (severe autism) Past Psych History Psychological trauma history Unknown Violence risk - others (6 mos) I due to patient's aggressive behavior Violence risk - self (6 mos) Low to moderate Substance Abuse History Drugs/Alcohol past 12 months Unknown at this time Past Family Social History Coded Allergies: clarithromycin (Unverified Allergy, Mild, 09/02/17) dextromethorphan (Unverified Allergy, Mild, 09/02/17) methylphenidate (Unverified Allergy, Mild, 09/02/17) pseudoephedrine (Unverified Allergy, Mild, 09/02/17) Reported Medications Risperidone (Risperdal) 3 Mg Tab, 3 MG PO DAILY, TAB 0 Refills 01/09/18 Montelukast (Montelukast) 10 Mg Tab, 10 MG PO HS, TAB 0 Refills 01/09/18 Trazodone (Trazodone) 150 Mg Tablet, 150 MG PO HS for Control Depression, TAB 0 Refills 01/09/18 Carbamazepine ER 12 HR (Tegretol-Xr 12 HR) 400 Mg Tab, 400 MG PO Q12HR, #60 TAB 0 Refills 08/30/17 Cetirizine HCl (Zyrtec) 10 Mg Capsule, 1 CAP PO DAILY 08/30/17 Montelukast (Singulair) 10 Mg Tab, 10 MG PO DAILY, #30 TAB 0 Refills 08/30/17 Discontinued Reported Medications Fluoxetine (Prozac) 20 Mg Cap, 20 MG PO DAILY, #30 CAP 0 Refills 08/30/17 Quetiapine (Seroquel) 100 Mg Tab, 100 MG PO BID, #60 TAB 0 Refills PT IS TO TAKE 100 MG AFTERNOON AROUNG 1PM AND 100MG AT 2000 08/30/17 Quetiapine (Seroquel) 50 Mg Tab, 50 MG PO DAILY, #30 TAB 0 Refills PT IS TO TAKE 50 IN THE MORNING 08/30/17 Trazodone (Trazodone) 100 Mg Tablet, 100 MG PO HS for Control Depression, #30 TAB 0 Refills 08/30/17 Current Medications Medications (Trade) Dose Ordered Sig/Mimi Route Start Time Stop Time Status Last Admin (Tylenol) 650 mg Q4H PRN PO 01/09/18 19:00 (Milk Of Magnesia Liq) 30 ml DAILY PRN PO 01/09/18 19:00 (Mag-Al Plus Susp Liq) 30 ml Q6H PRN PO 01/09/18 19:00 Family Psych History Patient adopted unknown at this time Social History Patient is living with his adoptive family all his life, she recently staying at a friend's house Patient's Strengths (min. 2) Patient has supportive family Physical Exam Patient medically cleared in ED at the present time patient no acute distress, is in no respiratory distress, does not complain of abdominal pain, patient moves all 4 extremities quite well Vital Signs Vital Signs Date Time Temp Pulse Resp B/P (MAP) Pulse Ox O2 Delivery O2 Flow Rate FiO2 01/10/18 06:18 97.7 70 18 122/62 (82) 97 01/09/18 19:00 Room Air Mental Status Examination Appearance: Appropriate (clean .) Consciousness: Alert Orientation: Person Motor Activity: Normal gait Speech: Slow, Other (basic 1 - 2 word answers.) Language: Other (minimal responses) Fund of Knowledge: Poor Attention and Concentration: Inadequate Memory: Impaired Mood: Other (labile) Affect: Other (marked decrease range of motion intensity) Thought Process & Associations: Other (limited verbalizations. Intellectual disability) Thought Content: Other Hallucination Type: None Delusion Type: None Suicidal Ideation: No Suicidal Plan: No Suicidal Intention: No Homicidal Ideation: No Homicidal Plan: No Homicidal Intention: No Insight: Poor Judgment: Poor Assessment & Plan Problem List: (1) Autism spectrum disorder ICD Codes: F84.0 - Autistic disorder Status: Acute (2) Impulse control disorder ICD Codes: F63.9 - Impulse disorder, unspecified Status: Acute Assessment & Plan Estimated LOS: 7 days but this time patient doesn't meet Rousseau criteria. I feel he also does not have capacity thus I'll ask for second opinion, I'll ask for healthcare surrogate and guardian advocate. Need to work adjusting his medications. Did need to have family conference to discuss placement options medication Discharge Planning This needs to be determined with assistance of family Request HC Surrog/Guard Advoc?: Yes Guillermo Amaya MD Jan 10, 2018 12:08
[2018-01-10] MEDS ORDERED: LORazepam 2 MG/ML VIAL IM STA (12:59)
[2018-01-10] MEDS ORDERED: PILL SPLITTER OTHER PRN (13:00)
[2018-01-10] MEDS ORDERED: OLANZapine IM 10 MG VIAL IM STA (13:15)
[2018-01-10] MEDS ORDERED: diphenhydrAMINE HCL 50 MG/ML VIAL IM STA (13:15)
[2018-01-10] MEDS: carBAMazepine 200 MG TAB PO SCH (20:57)
[2018-01-10] MEDS ORDERED: MONTELUKAST SODIUM 10 MG TAB PO SCH (21:00)
[2018-01-11 06:56] VITALS: BP 141/83; PULSE 100; RESP 20; TEMP 97; O2SAT 100
[2018-01-11] MEDS: CETIRIZINE HCL 10 MG TAB PO SCH ×2 (09:00→17:37)
[2018-01-11] MEDS: MONTELUKAST SODIUM 10 MG TAB PO SCH ×2 (09:00→17:37)
[2018-01-11] MEDS: carBAMazepine 200 MG TAB PO SCH ×2 (09:00→20:28)
--- NOTE | 2018-01-11 11:12 | HHI.PYPN ---
Subjective Remarks Patient seen in his room with nurse Korin, patient sleeping on that herself floor at this time. It appears late last night patient finally quite dizzy down with medication regimen. The platelet did not need the scheduled Thorazine throughout the night. However still remains to be seen outpatient will behave when he wakes up. I also talked with patient's mother's name is Nai at [phone]. She also states is been marked increase behavioral issues recently. We'll meet with them tomorrow morning about 9:30 to discuss further care and treatment and possible placement issues. Mother has given us permission for various medications including of the Thorazine Review of Systems ROS Limitations: Clinical Condition, Altered Mental Status Mental Status Examination Appearance: Appropriate (clean .) Consciousness: Alert Orientation: Person Motor Activity: Normal gait Speech: Slow, Other (basic 1 - 2 word answers.) Language: Other (minimal responses) Fund of Knowledge: Poor Attention and Concentration: Inadequate Memory: Impaired Mood: Other (labile) Affect: Other (marked decrease range of motion intensity) Thought Process & Associations: Other (limited verbalizations. Intellectual disability) Thought Content: Other Hallucination Type: None Delusion Type: None Suicidal Ideation: No Suicidal Plan: No Suicidal Intention: No Homicidal Ideation: No Homicidal Plan: No Homicidal Intention: No Insight: Poor Judgment: Poor Results Vitals/IOs Vital Signs Date Time Temp Pulse Resp B/P (MAP) Pulse Ox O2 Delivery O2 Flow Rate FiO2 01/11/18 06:56 97.0 100 20 141/83 (102) 100 01/09/18 19:00 Room Air Assessment & Plan Problem List: (1) Autism spectrum disorder ICD Codes: F84.0 - Autistic disorder Status: Acute (2) Impulse control disorder ICD Codes: F63.9 - Impulse disorder, unspecified Status: Acute Assessment & Plan Estimated LOS: days patient somewhat calmer at the present time perhaps a collimation of his various PTOs. Continue to observe. Is scheduled to meet with patient's mother and father tomorrow morning at 9:30 Justification for Cont. Inpt. At this point patient decompensated placed in a lower level of care Discharge Planning Will meet with family tomorrow to discuss placement options Request HC Surrog/Guard Advoc?: Yes Guillermo Amaya MD Jan 11, 2018 11:12
--- NOTE | 2018-01-11 11:45 | PD.PSY.CON ---
Provisional Diagnosis Admission Date Jan 09, 2018 at 17:51 [place] I. Autism spectrum disorder t 34.0, impulse control disorder History of Present Illness Service Psychiatry Consult Requested By Psychiatry Reason for Consult Second opinion Primary Care Physician Mariusz Musa M.D. HPI Patient 32-year-old [place] male adopted by his parents at about 10 months of age comes here under Rousseau act signed by Aliyah HUTCHINS dated January 09, 2018 at 6 PM stating autism impulse control disorder, that she document reviewed and agreed with also states the patient was increasing in aggressive behavior towards parents not sleeping failed medication adjustments. Patient is an outpatient with Dr. pino. Patient was initially seen by me J pod with the nurse practitioner patient severely autistic very infantile and his responses markedly explosive impulsive violent screaming kicking and hitting and biting. This necessitated an ETO of Zyprexa Ativan and Benadryl in the J pod patient did respond to it and had a fairly good night. Today on 2700 patient is again out of control the sustain another repeat of that he ETO. However he is still alert angry volatile and impulsive. He is being kept on the short-haul at the present time. Patient has had multiple visits with us. The to contact patient's adoptive parents who are elderly to discuss future treatment medications and possible placement alternatives it appears her return with the patient's parents may not be a safe placement Patient has been consulted to me for second opinion. In my evaluation the patient was completely slept after being medicated with multiple ETOs yesterday. As per nurse report, the patient has been extremely agitated, verbally and physically aggressive with the staff and other patients, he had to be restrained physically and chemically, and he has been extremely difficult to deal with in the unit. Past Family Social History Coded Allergies: clarithromycin (Unverified Allergy, Mild, 09/02/17) dextromethorphan (Unverified Allergy, Mild, 09/02/17) methylphenidate (Unverified Allergy, Mild, 09/02/17) pseudoephedrine (Unverified Allergy, Mild, 09/02/17) Reported Medications Risperidone (Risperdal) 3 Mg Tab, 3 MG PO DAILY, TAB 0 Refills 01/09/18 Montelukast (Montelukast) 10 Mg Tab, 10 MG PO HS, TAB 0 Refills 01/09/18 Trazodone (Trazodone) 150 Mg Tablet, 150 MG PO HS for Control Depression, TAB 0 Refills 01/09/18 Carbamazepine ER 12 HR (Tegretol-Xr 12 HR) 400 Mg Tab, 400 MG PO Q12HR, #60 TAB 0 Refills 08/30/17 Cetirizine HCl (Zyrtec) 10 Mg Capsule, 1 CAP PO DAILY 08/30/17 Montelukast (Singulair) 10 Mg Tab, 10 MG PO DAILY, #30 TAB 0 Refills 08/30/17 Discontinued Reported Medications Fluoxetine (Prozac) 20 Mg Cap, 20 MG PO DAILY, #30 CAP 0 Refills 08/30/17 Quetiapine (Seroquel) 100 Mg Tab, 100 MG PO BID, #60 TAB 0 Refills PT IS TO TAKE 100 MG AFTERNOON AROUNG 1PM AND 100MG AT 2000 08/30/17 Quetiapine (Seroquel) 50 Mg Tab, 50 MG PO DAILY, #30 TAB 0 Refills PT IS TO TAKE 50 IN THE MORNING 08/30/17 Trazodone (Trazodone) 100 Mg Tablet, 100 MG PO HS for Control Depression, #30 TAB 0 Refills 08/30/17 Current Medications Medications (Trade) Dose Ordered Sig/Mimi Route Start Time Stop Time Status Last Admin (Tylenol) 650 mg Q4H PRN PO 01/09/18 19:00 (Milk Of Magnesia Liq) 30 ml DAILY PRN PO 01/09/18 19:00 (Mag-Al Plus Susp Liq) 30 ml Q6H PRN PO 01/09/18 19:00 (Singulair) 10 mg DAILY PO 01/11/18 09:00 (risperDAL) 3 mg DAILY PO 01/11/18 09:00 Future Hold (TEGretol) 400 mg Q12H PO 01/10/18 21:00 01/10/18 20:57 (ZyrTEC) 10 mg DAILY PO 01/11/18 09:00 (Desyrel) 150 mg HS PO 01/10/18 21:00 Future Hold (Pill Splitter) 1 ea UNSCH PRN OTHER 01/10/18 13:00 (Thorazine Inj) 50 mg Q4H PRN IM 01/10/18 19:45 01/10/18 19:37 Patient's Strengths (min. 2) Patient has supportive family Physical Exam Vital Signs Vital Signs Date Time Temp Pulse Resp B/P (MAP) Pulse Ox O2 Delivery O2 Flow Rate FiO2 01/11/18 06:56 97.0 100 20 141/83 (102) 100 01/09/18 19:00 Room Air Mental Status Examination Appearance: Appropriate (clean .) Consciousness: Alert Orientation: Person Motor Activity: Normal gait Speech: Slow, Other (basic 1 - 2 word answers.) Language: Other (minimal responses) Fund of Knowledge: Poor Attention and Concentration: Inadequate Memory: Impaired Mood: Other (labile) Affect: Other (marked decrease range of motion intensity) Thought Process & Associations: Other (limited verbalizations. Intellectual disability) Thought Content: Other Hallucination Type: None Delusion Type: None Suicidal Ideation: No Suicidal Plan: No Suicidal Intention: No Homicidal Ideation: No Homicidal Plan: No Homicidal Intention: No Insight: Poor Judgment: Poor Assessment & Plan Problem List: (1) Autism spectrum disorder ICD Codes: F84.0 - Autistic disorder Status: Acute Assessment & Plan: I have seen and examined this patient, reviewed documentation, discussed with staff, I agree and concur with Dr. Floyd's assessment and plan (2) Impulse control disorder ICD Codes: F63.9 - Impulse disorder, unspecified Status: Acute Assessment & Plan Estimated LOS: days Request HC Surrog/Guard Advoc?: Yes Jayden Bell MD Jan 11, 2018 11:45
[2018-01-11] MEDS: risperiDONE 3 MG TAB PO SCH (17:37)
[2018-01-11] MEDS: traZODone HCL 100 MG TAB PO SCH (20:28)
[2018-01-12 05:49] VITALS: BP 121/82; PULSE 97; RESP 18; TEMP 97.3; O2SAT 98
[2018-01-12] MEDS: MONTELUKAST SODIUM 10 MG TAB PO SCH (09:00)
[2018-01-12] MEDS: CETIRIZINE HCL 10 MG TAB PO SCH (09:01)
[2018-01-12] MEDS: risperiDONE 3 MG TAB PO SCH (09:01)
[2018-01-12] MEDS: carBAMazepine 200 MG TAB PO SCH ×2 (09:01→20:44)
--- NOTE | 2018-01-12 11:42 | HHI.PYPN ---
Subjective Remarks Met with patient's mother father and family friend who is also cared for patient most of his life, counselor Jose, chart review, patient discussed with nurse. Discussion of family indicates that patient is showing some increased behavioral issues recently with changes in a senior living who is in from was 12 years, some medication adjustments by the outpatient psychiatrist, and his other recent stay here. Family isn't close contact with a PED 10 find another appropriate behavior disorder senior living for their son. Patient so far today has been calm patient seen today I me with nurse Julia in his room resting Kandice alone said go with mom me, and then laid back down. We'll continue monitor schedule medications at the present time and observe her behaviors Review of Systems Except as stated in HPI: all other systems reviewed are Neg Mental Status Examination Appearance: Appropriate (clean .) Consciousness: Alert Orientation: Person Motor Activity: Normal gait Speech: Slow, Other (basic 1 - 2 word answers.) Language: Other (minimal responses) Fund of Knowledge: Poor Attention and Concentration: Inadequate Memory: Impaired Mood: Other (labile) Affect: Other (marked decrease range of motion intensity) Thought Process & Associations: Other (limited verbalizations. Intellectual disability) Thought Content: Other Hallucination Type: None Delusion Type: None Suicidal Ideation: No Suicidal Plan: No Suicidal Intention: No Homicidal Ideation: No Homicidal Plan: No Homicidal Intention: No Insight: Poor Judgment: Poor Results Vitals/IOs Vital Signs Date Time Temp Pulse Resp B/P (MAP) Pulse Ox O2 Delivery O2 Flow Rate FiO2 01/12/18 05:49 97.3 97 18 121/82 (95) 98 01/09/18 19:00 Room Air Assessment & Plan Problem List: (1) Autism spectrum disorder ICD Codes: F84.0 - Autistic disorder Status: Acute (2) Impulse control disorder ICD Codes: F63.9 - Impulse disorder, unspecified Status: Acute Assessment & Plan Estimated LOS: days patient significant behavioral problems seems somewhat quieter today but we need further observation to determine consistency of behaviors Justification for Cont. Inpt. At this time patient decompensate if not placed in an appropriate level of care Discharge Planning To be determined Request HC Surrog/Guard Advoc?: Yes Guillermo Amaya MD Jan 12, 2018 11:42
[2018-01-12 18:29] VITALS: BP 113/75; PULSE 118; RESP 18; TEMP 98.6; O2SAT 97
[2018-01-12] MEDS: traZODone HCL 100 MG TAB PO SCH (20:44)
[2018-01-13 06:06] VITALS: BP 130/84; PULSE 97; RESP 18; TEMP 98.3; O2SAT 98
[2018-01-13] MEDS: risperiDONE 3 MG TAB PO SCH (08:58)
[2018-01-13] MEDS: CETIRIZINE HCL 10 MG TAB PO SCH (08:58)
[2018-01-13] MEDS: carBAMazepine 200 MG TAB PO SCH ×2 (08:58→20:43)
[2018-01-13] MEDS: MONTELUKAST SODIUM 10 MG TAB PO SCH (12:15)
--- NOTE | 2018-01-13 15:46 | HHI.PYPN ---
Subjective Remarks Patient seen in day room with nurse Julia, chart review, patient discussed with nurse. It appears patient slept well last night. He continues quite childish with significant autistic behaviors speaking quite childlike calling for "mommy " morbidly is not been violent has been redirectable and pleasant. We'll be getting a Tegretol blood level in a.m. continue treatment Review of Systems Except as stated in HPI: all other systems reviewed are Neg Mental Status Examination Appearance: Appropriate (clean .) Consciousness: Alert Orientation: Person Motor Activity: Normal gait Speech: Slow, Other (basic 1 - 2 word answers.) Language: Other (minimal responses) Fund of Knowledge: Poor Attention and Concentration: Inadequate Memory: Impaired Mood: Other (labile) Affect: Other (marked decrease range of motion intensity) Thought Process & Associations: Other (limited verbalizations. Intellectual disability) Thought Content: Other Hallucination Type: None Delusion Type: None Suicidal Ideation: No Suicidal Plan: No Suicidal Intention: No Homicidal Ideation: No Homicidal Plan: No Homicidal Intention: No Insight: Poor Judgment: Poor Results Vitals/IOs Vital Signs Date Time Temp Pulse Resp B/P (MAP) Pulse Ox O2 Delivery O2 Flow Rate FiO2 01/13/18 06:06 98.3 97 18 130/84 (99) 98 01/09/18 19:00 Room Air Assessment & Plan Problem List: (1) Autism spectrum disorder ICD Codes: F84.0 - Autistic disorder Status: Acute (2) Impulse control disorder ICD Codes: F63.9 - Impulse disorder, unspecified Status: Acute Assessment & Plan Estimated LOS: days patient continues somewhat labile though, the present time , compliant medications will recheck in Tegretol blood level in a.m. Justification for Cont. Inpt. At this time patient with decompensated placed in a lower level of care Discharge Planning Continue to work on behavioral nursing home placement Request HC Surrog/Guard Advoc?: Yes Guillermo Amaya MD Jan 13, 2018 15:46
[2018-01-13 16:47] VITALS: BP 124/73; PULSE 104; RESP 18; TEMP 98.7; O2SAT 99
[2018-01-13] MEDS: traZODone HCL 100 MG TAB PO SCH (20:43)
[2018-01-14 06:05] VITALS: BP 136/75; PULSE 104; RESP 18; TEMP 97.8
[2018-01-14 07:45] LABS: BICARBONATE 31.4 MEQ/L (21.0-32.0); BLOOD UREA NITROGEN 13 MG/DL (7-18); CALCIUM 8.9 MG/DL (8.5-10.1); CHLORIDE 101 MEQ/L (98-107); CHOLESTEROL 201 MG/DL (120-200); CREATININE 0.78 MG/DL (0.60-1.30); GLOMERULAR FILTRATION RATE 114 ML/MIN (>89); GLUCOSE,RANDOM 93 MG/DL (74-106); SODIUM (NA) 140 MEQ/L (136-145); TRIGLYCERIDES 119 MG/DL (42-150)
[2018-01-14 07:48] LABS: CHOLESTEROL/ HDL RATIO 2.98 RATIO; HDL CHOLESTEROL 67.4 MG/DL (40.0-60.0); LDL CHOLESTEROL 110 MG/DL (0-99)
[2018-01-14] MEDS: MONTELUKAST SODIUM 10 MG TAB PO SCH (08:47)
[2018-01-14] MEDS: CETIRIZINE HCL 10 MG TAB PO SCH (08:47)
[2018-01-14] MEDS: risperiDONE 3 MG TAB PO SCH (08:47)
[2018-01-14] MEDS: carBAMazepine 200 MG TAB PO SCH ×2 (08:47→21:33)
--- NOTE | 2018-01-14 14:06 | HHI.PYPN ---
Subjective Remarks Patient seen in [facility] with floor staff, patient at that time needing when necessary IM medication for out of control behavior. Then met with patient's mother father and teacher friend prior to and during [address] hearing. Patient's case was continue for 4 weeks by Import Export Manager Will. For now will increase by mouth Respinol by 2 mg at 6 PM Review of Systems Except as stated in HPI: all other systems reviewed are Neg Mental Status Examination Appearance: Appropriate (clean .) Consciousness: Alert Orientation: Person Motor Activity: Normal gait Speech: Slow, Other (basic 1 - 2 word answers.) Language: Other (minimal responses) Fund of Knowledge: Poor Attention and Concentration: Inadequate Memory: Impaired Mood: Other (labile) Affect: Other (marked decrease range of motion intensity) Thought Process & Associations: Other (limited verbalizations. Intellectual disability) Thought Content: Other Hallucination Type: None Delusion Type: None Suicidal Ideation: No Suicidal Plan: No Suicidal Intention: No Homicidal Ideation: No Homicidal Plan: No Homicidal Intention: No Insight: Poor Judgment: Poor Results Labs Test 01/14/18 06:16 Blood Urea Nitrogen 13 MG/DL Creatinine 0.78 MG/DL Random Glucose 93 MG/DL Calcium Level 8.9 MG/DL Sodium Level 140 MEQ/L Potassium Level 3.9 MEQ/L Chloride Level 101 MEQ/L Carbon Dioxide Level 31.4 MEQ/L Anion Gap 8 MEQ/L Estimat Glomerular Filtration Rate 114 ML/MIN Triglycerides Level 119 MG/DL Cholesterol Level 201 MG/DL LDL Cholesterol 110 MG/DL HDL Cholesterol 67.4 MG/DL Cholesterol/HDL Ratio 2.98 RATIO Carbamazepine (Tegretol) Level 11.7 MCG/ML Vitals/IOs Vital Signs Date Time Temp Pulse Resp B/P (MAP) Pulse Ox O2 Delivery O2 Flow Rate FiO2 01/14/18 06:05 97.8 104 18 136/75 (95) 01/13/18 16:47 99 Assessment & Plan Problem List: (1) Autism spectrum disorder ICD Codes: F84.0 - Autistic disorder Status: Acute (2) Impulse control disorder ICD Codes: F63.9 - Impulse disorder, unspecified Status: Acute Assessment & Plan Estimated LOS: days patient continues to some impulsive behavior autistic behavior, low times appears staff are able to redirect him. She medication adjustment above. Patient's case continue for 4 weeks by Import Export Manager well Justification for Cont. Inpt. At this time patient with decompensated placed a lower level of care Discharge Planning We are attempting to work with family in finding appropriate placement Request HC Surrog/Guard Advoc?: Yes Guillermo Amaya MD Jan 14, 2018 14:06
[2018-01-14 16:14] LABS: HEMOGLOBIN A1C 5.3 % (4.3-6.0)
[2018-01-14] MEDS: risperiDONE 1 MG TAB PO SCH (18:00)
[2018-01-14 18:06] VITALS: BP 139/73; PULSE 100; RESP 18; TEMP 97; O2SAT 100
--- NOTE | 2018-01-14 21:13 | MG ---
cc: Fady Salazar MD EEG RECORD #[id number] INDICATION: A 32-year-old history of mental status changes. Asymmetric left hemispheric slowing low voltage on that side. Right hemisphere shows 6-8 Hz activity 20-50 microvolts. Reduced driving with photic stimulation. Occasional myogenic frontal artifact. Single lead EKG with artifact. INTERPRETATION: Moderate asymmetric left hemispheric slowing, no epileptic activity. Clinical correlation. Fady Salazar MD MG/rt , 09:01 PM , 09:12 PM
[2018-01-14] MEDS: traZODone HCL 100 MG TAB PO SCH (21:33)
[2018-01-15 06:00] VITALS: BP 128/68; PULSE 84; RESP 18; TEMP 97.7; O2SAT 96
[2018-01-15] MEDS: CETIRIZINE HCL 10 MG TAB PO SCH (08:15)
[2018-01-15] MEDS: carBAMazepine 200 MG TAB PO SCH ×2 (08:15→21:03)
[2018-01-15] MEDS: risperiDONE 3 MG TAB PO SCH (08:15)
[2018-01-15] MEDS: MONTELUKAST SODIUM 10 MG TAB PO SCH (08:15)
--- NOTE | 2018-01-15 13:00 | HHI.PYPN ---
Subjective Remarks Patient seen in day room with nurse Travis, chart reviewed, patient discussed with nurse. Patient compliant medication. Is been no significant behavioral outbursts. Patient times is loud intense somewhat intrusive at times redirectable. Continues to ask for "mommy". Will recheck Tegretol blood level on 01/17 Review of Systems Except as stated in HPI: all other systems reviewed are Neg Mental Status Examination Appearance: Appropriate (clean .) Consciousness: Alert Orientation: Person Motor Activity: Normal gait Speech: Slow, Other (basic 1 - 2 word answers.) Language: Other (minimal responses) Fund of Knowledge: Poor Attention and Concentration: Inadequate Memory: Impaired Mood: Other (labile) Affect: Other (marked decrease range of motion intensity) Thought Process & Associations: Other (limited verbalizations. Intellectual disability) Thought Content: Other Hallucination Type: None Delusion Type: None Suicidal Ideation: No Suicidal Plan: No Suicidal Intention: No Homicidal Ideation: No Homicidal Plan: No Homicidal Intention: No Insight: Poor Judgment: Poor Results Vitals/IOs Vital Signs Date Time Temp Pulse Resp B/P (MAP) Pulse Ox O2 Delivery O2 Flow Rate FiO2 01/15/18 06:00 97.7 84 18 128/68 (88) 96 Assessment & Plan Problem List: (1) Autism spectrum disorder ICD Codes: F84.0 - Autistic disorder Status: Acute (2) Impulse control disorder ICD Codes: F63.9 - Impulse disorder, unspecified Status: Acute Assessment & Plan Estimated LOS: days patient continues in intrusive at times somewhat irritating and is autistic [place]. Recheck Tegretol blood level on 01/17 Justification for Cont. Inpt. At this time patient will decompensate in place to the lower level of care Discharge Planning Continue to work with family counselors and [employer] Request HC Surrog/Guard Advoc?: Yes Guillermo Amaya MD Jan 15, 2018 13:00
[2018-01-15] MEDS: risperiDONE 1 MG TAB PO SCH (17:34)
[2018-01-15 18:20] VITALS: BP 128/89; PULSE 91; RESP 18; TEMP 97.6; O2SAT 97
[2018-01-15] MEDS: traZODone HCL 100 MG TAB PO SCH (21:03)
[2018-01-16 06:18] VITALS: BP 132/90; PULSE 83; RESP 22; TEMP 97.1; O2SAT 9
[2018-01-16] MEDS: CETIRIZINE HCL 10 MG TAB PO SCH (08:57)
[2018-01-16] MEDS: MONTELUKAST SODIUM 10 MG TAB PO SCH (08:57)
[2018-01-16] MEDS: risperiDONE 3 MG TAB PO SCH (08:57)
[2018-01-16] MEDS: carBAMazepine 200 MG TAB PO SCH ×2 (08:57→20:07)
--- NOTE | 2018-01-16 15:54 | HHI.PYPN ---
Subjective Remarks Patient was seen and case discussed with nursing. Cognitive deficits are profound. Patient is on good behavior and has not required an ETO's. Compliant with medications Mental Status Examination Appearance: Appropriate (clean .) Consciousness: Alert Orientation: Person Motor Activity: Normal gait Speech: Slow, Other (basic 1 - 2 word answers.) Language: Other (minimal responses) Fund of Knowledge: Poor Attention and Concentration: Inadequate Memory: Impaired Mood: Other (labile) Affect: Other (marked decrease range of motion intensity) Thought Process & Associations: Other (limited verbalizations. Intellectual disability) Thought Content: Other Hallucination Type: None Delusion Type: None Suicidal Ideation: No Suicidal Plan: No Suicidal Intention: No Homicidal Ideation: No Homicidal Plan: No Homicidal Intention: No Insight: Poor Judgment: Poor Results Vitals/IOs Vital Signs Date Time Temp Pulse Resp B/P (MAP) Pulse Ox O2 Delivery O2 Flow Rate FiO2 01/16/18 06:18 97.1 83 22 132/90 (104) 9 Assessment & Plan Problem List: (1) Autism spectrum disorder ICD Codes: F84.0 - Autistic disorder Status: Acute (2) Impulse control disorder ICD Codes: F63.9 - Impulse disorder, unspecified Status: Acute Assessment & Plan Continue current treatment plan Justification for Cont. Inpt. Patient will decompensate in a less restrictive setting Request HC Surrog/Guard Advoc?: Yes Everardo Rose DO Jan 16, 2018 15:54
[2018-01-16] MEDS: risperiDONE 1 MG TAB PO SCH (16:54)
[2018-01-16 17:35] VITALS: BP 128/87; PULSE 72; RESP 20; TEMP 97.8; O2SAT 98
[2018-01-16] MEDS: traZODone HCL 100 MG TAB PO SCH (20:08)
[2018-01-17 06:05] VITALS: BP 120/72; PULSE 85; RESP 20; TEMP 98; O2SAT 97
[2018-01-17] MEDS: carBAMazepine 200 MG TAB PO SCH ×2 (08:44→20:41)
[2018-01-17] MEDS: CETIRIZINE HCL 10 MG TAB PO SCH (08:44)
[2018-01-17] MEDS: MONTELUKAST SODIUM 10 MG TAB PO SCH (08:44)
[2018-01-17] MEDS: risperiDONE 3 MG TAB PO SCH (08:44)
--- NOTE | 2018-01-17 11:42 | HHI.PYPN ---
Subjective Remarks Patient was seen and case discussed with nursing. Tegretol level was 11. Patient has not had any outbursts. Remains labile and internally preoccupied. Mental Status Examination Appearance: Appropriate (clean .) Consciousness: Alert Orientation: Person Motor Activity: Normal gait Speech: Slow, Other (basic 1 - 2 word answers.) Language: Other (minimal responses) Fund of Knowledge: Poor Attention and Concentration: Inadequate Memory: Impaired Mood: Other (labile) Affect: Other (marked decrease range of motion intensity) Thought Process & Associations: Other (limited verbalizations. Intellectual disability) Thought Content: Other Hallucination Type: None Delusion Type: None Suicidal Ideation: No Suicidal Plan: No Suicidal Intention: No Homicidal Ideation: No Homicidal Plan: No Homicidal Intention: No Insight: Poor Judgment: Poor Results Labs Test 01/17/18 07:27 Carbamazepine (Tegretol) Level 11.0 MCG/ML Vitals/IOs Vital Signs Date Time Temp Pulse Resp B/P (MAP) Pulse Ox O2 Delivery O2 Flow Rate FiO2 01/17/18 06:05 98.0 85 20 120/72 (88) 97 Assessment & Plan Problem List: (1) Autism spectrum disorder ICD Codes: F84.0 - Autistic disorder Status: Acute (2) Impulse control disorder ICD Codes: F63.9 - Impulse disorder, unspecified Status: Acute Assessment & Plan Continue current treatment plan Justification for Cont. Inpt. Patient will decompensate in a less restrictive setting Request HC Surrog/Guard Advoc?: Yes Everardo Rose DO Jan 17, 2018 11:42
[2018-01-17 17:03] VITALS: BP 122/74; PULSE 74; RESP 18; TEMP 97.2; O2SAT 97
[2018-01-17] MEDS: risperiDONE 1 MG TAB PO SCH (18:38)
[2018-01-17] MEDS: traZODone HCL 100 MG TAB PO SCH (20:41)
[2018-01-18 06:09] VITALS: BP 122/74; PULSE 81; RESP 18; TEMP 97.5; O2SAT 97
[2018-01-18] MEDS: risperiDONE 3 MG TAB PO SCH (09:34)
[2018-01-18] MEDS: MONTELUKAST SODIUM 10 MG TAB PO SCH (09:34)
[2018-01-18] MEDS: carBAMazepine 200 MG TAB PO SCH ×2 (09:34→20:08)
[2018-01-18] MEDS: CETIRIZINE HCL 10 MG TAB PO SCH (09:35)
--- NOTE | 2018-01-18 12:28 | HHI.PYPN ---
Subjective Remarks Patient seen in day room, continues quite childlike with his behavior and his verbalizations. That appear she said no significant behavioral problems recently. We continue to work with patient's family finally an appropriate placement Review of Systems Except as stated in HPI: all other systems reviewed are Neg Mental Status Examination Appearance: Appropriate (clean .) Consciousness: Alert Orientation: Person Motor Activity: Normal gait Speech: Slow, Other (basic 1 - 2 word answers.) Language: Other (minimal responses) Fund of Knowledge: Poor Attention and Concentration: Inadequate Memory: Impaired Mood: Other (labile) Affect: Other (marked decrease range of motion intensity) Thought Process & Associations: Other (limited verbalizations. Intellectual disability) Thought Content: Other Hallucination Type: None Delusion Type: None Suicidal Ideation: No Suicidal Plan: No Suicidal Intention: No Homicidal Ideation: No Homicidal Plan: No Homicidal Intention: No Insight: Poor Judgment: Poor Results Vitals/IOs Vital Signs Date Time Temp Pulse Resp B/P (MAP) Pulse Ox O2 Delivery O2 Flow Rate FiO2 01/18/18 06:09 97.5 81 18 122/74 (90) 97 Assessment & Plan Problem List: (1) Autism spectrum disorder ICD Codes: F84.0 - Autistic disorder Status: Acute (2) Impulse control disorder ICD Codes: F63.9 - Impulse disorder, unspecified Status: Acute Assessment & Plan Estimated LOS: days patient remains somewhat unpredictable flow behaviors been controllable with appropriate interventions. Remains quite childlike Justification for Cont. Inpt. At this time patient will decompensate if not placed in an appropriate level of care Discharge Planning To be determined Request HC Surrog/Guard Advoc?: Yes Guillermo Amaya MD Jan 18, 2018 12:28
[2018-01-18 15:08] VITALS: BP 122/78; PULSE 80; RESP 18; TEMP 96.6; O2SAT 98
[2018-01-18] MEDS: risperiDONE 1 MG TAB PO SCH (18:00)
[2018-01-18] MEDS: traZODone HCL 100 MG TAB PO SCH (20:08)
[2018-01-19 05:56] VITALS: BP 114/75; PULSE 82; RESP 18; TEMP 96.8; O2SAT 100
[2018-01-19] MEDS: risperiDONE 3 MG TAB PO SCH (08:22)
[2018-01-19] MEDS: MONTELUKAST SODIUM 10 MG TAB PO SCH (08:22)
[2018-01-19] MEDS: carBAMazepine 200 MG TAB PO SCH ×2 (08:22→20:46)
[2018-01-19] MEDS: CETIRIZINE HCL 10 MG TAB PO SCH (08:22)
--- NOTE | 2018-01-19 14:09 | HHI.PYPN ---
Subjective Remarks Patient seen in day room with nurse Carbajal, chart review, patient compliant medication, patient discussed with nurse. Patient showing no significant behavioral issues. His autistic behaviors have not changed he continues to call for his "mommy". We are awaiting word from a possible placement in [facility] Review of Systems Except as stated in HPI: all other systems reviewed are Neg Mental Status Examination Appearance: Appropriate (clean .) Consciousness: Alert Orientation: Person Motor Activity: Normal gait Speech: Slow, Other (basic 1 - 2 word answers.) Language: Other (minimal responses) Fund of Knowledge: Poor Attention and Concentration: Inadequate Memory: Impaired Mood: Other (labile) Affect: Other (marked decrease range of motion intensity) Thought Process & Associations: Other (limited verbalizations. Intellectual disability) Thought Content: Other Hallucination Type: None Delusion Type: None Suicidal Ideation: No Suicidal Plan: No Suicidal Intention: No Homicidal Ideation: No Homicidal Plan: No Homicidal Intention: No Insight: Poor Judgment: Poor Results Vitals/IOs Vital Signs Date Time Temp Pulse Resp B/P (MAP) Pulse Ox O2 Delivery O2 Flow Rate FiO2 01/19/18 05:56 96.8 82 18 114/75 (88) 100 Assessment & Plan Problem List: (1) Autism spectrum disorder ICD Codes: F84.0 - Autistic disorder Status: Acute (2) Impulse control disorder ICD Codes: F63.9 - Impulse disorder, unspecified Status: Acute Assessment & Plan Estimated LOS: days this been no significant change in patient's behavior since the adjustment of the medication. Remains at times labile and somewhat intrusive overall controllable. We continue to await word from possible placement in [facility] Justification for Cont. Inpt. At this time patient would decompensated placed in the lower level of care Discharge Planning We continue to await word from possible placement of self or Request HC Surrog/Guard Advoc?: Yes Guillermo Amaya MD Jan 19, 2018 14:09
[2018-01-19] MEDS: risperiDONE 1 MG TAB PO SCH (17:57)
[2018-01-19] MEDS: traZODone HCL 100 MG TAB PO SCH (20:47)
[2018-01-20 05:57] VITALS: BP 124/82; PULSE 81; RESP 18; TEMP 97; O2SAT 99
[2018-01-20] MEDS: MONTELUKAST SODIUM 10 MG TAB PO SCH (08:54)
[2018-01-20] MEDS: risperiDONE 3 MG TAB PO SCH (08:54)
[2018-01-20] MEDS: carBAMazepine 200 MG TAB PO SCH ×2 (08:54→21:38)
[2018-01-20] MEDS: CETIRIZINE HCL 10 MG TAB PO SCH (08:54)
--- NOTE | 2018-01-20 15:32 | HHI.PYPN ---
Subjective Remarks Patient seen in his room with nurse Cady, chart review, patient compliant medications. Patient discussed with nurse. Patient was calm asking for mommy laying down on his bed in his room. Forward appears earlier today patient had an episode of dyscontrol or use throwing stuff those on a tables onto the floor and being somewhat boisterous and yelling. He did calm down on to his room with her did receive an injection of Thorazine. Will increase her daily schedule Respinol to 4 mg Review of Systems Except as stated in HPI: all other systems reviewed are Neg Mental Status Examination Appearance: Appropriate (clean .) Consciousness: Alert Orientation: Person Motor Activity: Normal gait Speech: Slow, Other (basic 1 - 2 word answers.) Language: Other (minimal responses) Fund of Knowledge: Poor Attention and Concentration: Inadequate Memory: Impaired Mood: Other (labile) Affect: Other (marked decrease range of motion intensity) Thought Process & Associations: Other (limited verbalizations. Intellectual disability) Thought Content: Other Hallucination Type: None Delusion Type: None Suicidal Ideation: No Suicidal Plan: No Suicidal Intention: No Homicidal Ideation: No Homicidal Plan: No Homicidal Intention: No Insight: Poor Judgment: Poor Results Vitals/IOs Vital Signs Date Time Temp Pulse Resp B/P (MAP) Pulse Ox O2 Delivery O2 Flow Rate FiO2 01/20/18 05:57 97.0 81 18 124/82 (96) 99 Assessment & Plan Problem List: (1) Autism spectrum disorder ICD Codes: F84.0 - Autistic disorder Status: Acute (2) Impulse control disorder ICD Codes: F63.9 - Impulse disorder, unspecified Status: Acute Assessment & Plan Estimated LOS: days patient remains quite childlike about systemic the episode of dyscontrol this morning. Will increase daily Respinol to 4 mg daily Justification for Cont. Inpt. This time patient would decompensate if placed in a lower level of care Discharge Planning Continues to be worked on with placement Request HC Surrog/Guard Advoc?: Yes Guillermo Amaya MD Jan 20, 2018 15:32
[2018-01-20 16:09] VITALS: BP 114/72; PULSE 80; RESP 18; TEMP 97.9; O2SAT 98
[2018-01-20] MEDS: risperiDONE 1 MG TAB PO SCH (18:00)
[2018-01-20] MEDS: traZODone HCL 100 MG TAB PO SCH (21:38)
[2018-01-21 06:29] VITALS: BP 133/96; PULSE 94; RESP 18; TEMP 97.2; O2SAT 97
[2018-01-21] MEDS: carBAMazepine 200 MG TAB PO SCH ×2 (08:45→21:38)
[2018-01-21] MEDS: risperiDONE 1 MG TAB PO SCH ×2 (08:45→18:00)
[2018-01-21] MEDS: MONTELUKAST SODIUM 10 MG TAB PO SCH (08:45)
[2018-01-21] MEDS: CETIRIZINE HCL 10 MG TAB PO SCH (08:45)
--- NOTE | 2018-01-21 17:05 | HHI.PYPN ---
Subjective Remarks Patient seen in his room with nurse Julia. Appears patient had some dyscontrol around 7 AM this morning 80 ETO of Thorazine. Otherwise patient now sitting in his room continues to ask for "mommy" for now continue medication Review of Systems Except as stated in HPI: all other systems reviewed are Neg Mental Status Examination Appearance: Appropriate (clean .) Consciousness: Alert Orientation: Person Motor Activity: Normal gait Speech: Slow, Other (basic 1 - 2 word answers.) Language: Other (minimal responses) Fund of Knowledge: Poor Attention and Concentration: Inadequate Memory: Impaired Mood: Other (labile) Affect: Other (marked decrease range of motion intensity) Thought Process & Associations: Other (limited verbalizations. Intellectual disability) Thought Content: Other Hallucination Type: None Delusion Type: None Suicidal Ideation: No Suicidal Plan: No Suicidal Intention: No Homicidal Ideation: No Homicidal Plan: No Homicidal Intention: No Insight: Poor Judgment: Poor Results Vitals/IOs Vital Signs Date Time Temp Pulse Resp B/P (MAP) Pulse Ox O2 Delivery O2 Flow Rate FiO2 01/21/18 06:29 97.2 94 18 133/96 (108) 97 Assessment & Plan Problem List: (1) Autism spectrum disorder ICD Codes: F84.0 - Autistic disorder Status: Acute (2) Impulse control disorder ICD Codes: F63.9 - Impulse disorder, unspecified Status: Acute Assessment & Plan Estimated LOS: days patient is quite difficult with some behavior problems earlier this morning. Justification for Cont. Inpt. With this time patient with decompensated placed a lower level of care Discharge Planning Awaiting word from senior living in [facility] Request HC Surrog/Guard Advoc?: Yes Guillermo Amaya MD Jan 21, 2018 17:05
[2018-01-21 18:05] VITALS: BP 126/82; PULSE 101; RESP 18; TEMP 97.4; O2SAT 98
[2018-01-21] MEDS: traZODone HCL 100 MG TAB PO SCH (21:37)
[2018-01-22 06:00] VITALS: BP 140/68; PULSE 98; RESP 16; TEMP 96.4; O2SAT 97
[2018-01-22] MEDS: risperiDONE 1 MG TAB PO SCH ×2 (08:56→18:15)
[2018-01-22] MEDS: CETIRIZINE HCL 10 MG TAB PO SCH (08:57)
[2018-01-22] MEDS: carBAMazepine 200 MG TAB PO SCH ×2 (08:57→20:24)
[2018-01-22] MEDS: MONTELUKAST SODIUM 10 MG TAB PO SCH (08:57)
--- NOTE | 2018-01-22 14:06 | HHI.PYPN ---
Subjective Remarks Reviewed electronic medical record. Patient has been compliant with his medications. Has not needed an ETO so far today. Follow-up performed in [facility]. Patient had just come in from participating in fresh air and was attempting to go back outside. Ambulating without difficulty. Only repeats "outside, I want to go outside". Mental Status Examination Appearance: Appropriate (clean .) Consciousness: Alert Orientation: Person Motor Activity: Normal gait Speech: Slow, Other (basic 1 - 2 word answers.) Language: Other (minimal responses) Fund of Knowledge: Poor Attention and Concentration: Inadequate Memory: Impaired Mood: Other (labile) Affect: Other (marked decrease range of motion intensity) Thought Process & Associations: Other (limited verbalizations. Intellectual disability) Thought Content: Other Hallucination Type: None Delusion Type: None Suicidal Ideation: No Suicidal Plan: No Suicidal Intention: No Homicidal Ideation: No Homicidal Plan: No Homicidal Intention: No Insight: Poor Judgment: Poor Results Vitals/IOs Vital Signs Date Time Temp Pulse Resp B/P (MAP) Pulse Ox O2 Delivery O2 Flow Rate FiO2 01/22/18 06:00 96.4 98 16 140/68 (92) 97 Assessment & Plan Problem List: (1) Autism spectrum disorder ICD Codes: F84.0 - Autistic disorder Status: Acute (2) Impulse control disorder ICD Codes: F63.9 - Impulse disorder, unspecified Status: Acute Assessment & Plan Estimated LOS: Patient will continue with treatment plan. Justification for Cont. Inpt. Moving this patient to a lower level of care would result in decompensation. He is incapable of caring for himself. Request HC Surrog/Guard Advoc?: Yes Nicol Batres Jan 22, 2018 14:06
[2018-01-22 18:00] VITALS: BP 110/74; PULSE 108; RESP 16; TEMP 96.5; O2SAT 99
[2018-01-22] MEDS: traZODone HCL 100 MG TAB PO SCH (20:25)
[2018-01-23 06:31] VITALS: BP 121/70; PULSE 82; RESP 16; TEMP 97.7; O2SAT 97
[2018-01-23] MEDS: MONTELUKAST SODIUM 10 MG TAB PO SCH (07:47)
[2018-01-23] MEDS: risperiDONE 1 MG TAB PO SCH ×2 (07:47→16:58)
[2018-01-23] MEDS: CETIRIZINE HCL 10 MG TAB PO SCH (07:48)
[2018-01-23] MEDS: carBAMazepine 200 MG TAB PO SCH ×2 (07:48→20:42)
--- NOTE | 2018-01-23 15:58 | HHI.PYPN ---
Subjective Remarks Pt seen and discussed with staff. He remains childlike and requires close supervision. He had difficulty transitioning today from unit activity. He is compliant with medications. He did do hygiene ADLs without assistance. Mental Status Examination Appearance: Appropriate (clean, casually dressed) Consciousness: Alert Orientation: Person Motor Activity: Normal gait Speech: Other (mechanical tone, loud) Language: Other (minimal responses) Fund of Knowledge: Poor Attention and Concentration: Inadequate Memory: Impaired Mood: Other (labile) Affect: Other (marked decrease range of motion intensity) Thought Process & Associations: Other (concrete) Thought Content: Other Hallucination Type: None Delusion Type: None Suicidal Ideation: No Suicidal Plan: No Suicidal Intention: No Homicidal Ideation: No Homicidal Plan: No Homicidal Intention: No Insight: Poor Judgment: Poor Results Vitals/IOs Vital Signs Date Time Temp Pulse Resp B/P (MAP) Pulse Ox O2 Delivery O2 Flow Rate FiO2 01/23/18 06:31 97.7 82 16 121/70 (87) 97 Assessment & Plan Problem List: (1) Autism spectrum disorder ICD Codes: F84.0 - Autistic disorder Status: Acute (2) Impulse control disorder ICD Codes: F63.9 - Impulse disorder, unspecified Status: Acute Assessment & Plan Continue current tx plan. Estimated LOS: days Justification for Cont. Inpt. risk of decompensation Request HC Surrog/Guard Advoc?: Yes Leatha Valadez MD Jan 23, 2018 15:58
[2018-01-23 18:04] VITALS: BP 129/82; PULSE 85; RESP 18; TEMP 97.4; O2SAT 97
[2018-01-23] MEDS: traZODone HCL 100 MG TAB PO SCH (20:42)
[2018-01-24 05:58] VITALS: BP 118/79; PULSE 80; RESP 16; TEMP 97.9; O2SAT 100
[2018-01-24] MEDS: carBAMazepine 200 MG TAB PO SCH ×2 (08:03→20:19)
[2018-01-24] MEDS: risperiDONE 1 MG TAB PO SCH ×2 (08:03→17:19)
[2018-01-24] MEDS: CETIRIZINE HCL 10 MG TAB PO SCH (08:04)
[2018-01-24] MEDS: MONTELUKAST SODIUM 10 MG TAB PO SCH (08:05)
[2018-01-24 15:31] VITALS: BP 103/71; PULSE 83; RESP 18; TEMP 97; O2SAT 100
--- NOTE | 2018-01-24 15:34 | HHI.PYPN ---
Subjective Remarks Pt seen and discussed with staff. Pt threw food tray this morning and received thorazine IM x 1 for agitation. He calmed and has been in better behavioral control for the rest of the day. Mental Status Examination Appearance: Appropriate (clean, casually dressed) Consciousness: Alert Orientation: Person Motor Activity: Normal gait Speech: Other (mechanical tone, loud) Language: Other (limited vocabulary) Fund of Knowledge: Poor Attention and Concentration: Inadequate Memory: Impaired Mood: Other (labile) Affect: Flat Thought Process & Associations: Other (concrete) Thought Content: Other Hallucination Type: None Delusion Type: None Suicidal Ideation: No Suicidal Plan: No Suicidal Intention: No Homicidal Ideation: No Homicidal Plan: No Homicidal Intention: No Insight: Poor Judgment: Poor Results Vitals/IOs Vital Signs Date Time Temp Pulse Resp B/P (MAP) Pulse Ox O2 Delivery O2 Flow Rate FiO2 01/24/18 05:58 97.9 80 16 118/79 (92) 100 Assessment & Plan Problem List: (1) Autism spectrum disorder ICD Codes: F84.0 - Autistic disorder Status: Acute (2) Impulse control disorder ICD Codes: F63.9 - Impulse disorder, unspecified Status: Acute Assessment & Plan Continue current tx plan. Estimated LOS: days Justification for Cont. Inpt. risk of decompensation Request HC Surrog/Guard Advoc?: Yes Leatha Valadez MD Jan 24, 2018 15:33
[2018-01-24] MEDS: traZODone HCL 100 MG TAB PO SCH (20:19)
[2018-01-25 05:36] VITALS: BP 124/89; PULSE 88; RESP 18; TEMP 97.4; O2SAT 96
[2018-01-25] MEDS: risperiDONE 1 MG TAB PO SCH ×2 (08:51→17:49)
[2018-01-25] MEDS: carBAMazepine 200 MG TAB PO SCH ×2 (08:51→21:00)
[2018-01-25] MEDS: MONTELUKAST SODIUM 10 MG TAB PO SCH (08:51)
[2018-01-25] MEDS: CETIRIZINE HCL 10 MG TAB PO SCH (08:51)
[2018-01-25 15:32] VITALS: BP 121/79; PULSE 79; RESP 18; TEMP 97.8; O2SAT 99
--- NOTE | 2018-01-25 16:29 | HHI.PYPN ---
Subjective Remarks Patient seen in day room with nurse Huerta, chart review, patient compliant medication, patient discussed with nurse. Patient continues childlike quite simple labile at times somewhat intrusive but overall redirectable. Is been no significant behavioral problems. It appears there has been a halfway discovered for this young man in [facility] he will be discharged there on February 02 Review of Systems Except as stated in HPI: all other systems reviewed are Neg Mental Status Examination Appearance: Appropriate (clean, casually dressed) Consciousness: Alert Orientation: Person Motor Activity: Normal gait Speech: Other (mechanical tone, loud) Language: Other (limited vocabulary) Fund of Knowledge: Poor Attention and Concentration: Inadequate Memory: Impaired Mood: Other (labile) Affect: Flat Thought Process & Associations: Other (concrete) Thought Content: Other Hallucination Type: None Delusion Type: None Suicidal Ideation: No Suicidal Plan: No Suicidal Intention: No Homicidal Ideation: No Homicidal Plan: No Homicidal Intention: No Insight: Poor Judgment: Poor Results Vitals/IOs Vital Signs Date Time Temp Pulse Resp B/P (MAP) Pulse Ox O2 Delivery O2 Flow Rate FiO2 01/25/18 15:32 97.8 79 18 121/79 (93) 99 Assessment & Plan Problem List: (1) Autism spectrum disorder ICD Codes: F84.0 - Autistic disorder Status: Acute (2) Impulse control disorder ICD Codes: F63.9 - Impulse disorder, unspecified Status: Acute Assessment & Plan Estimated LOS: days patient's impulsivity has slowed down somewhat he is under somewhat better control his been happy and pleasant on the unit. It appears they will be a placement for this gentleman on 02/02 Justification for Cont. Inpt. At this time patient would decompensated placed in a lower level of care Discharge Planning Possible placement on 03/01 halfway in [facility] Request HC Surrog/Guard Advoc?: Yes Guillermo Amaya MD Jan 25, 2018 16:29
[2018-01-25] MEDS: traZODone HCL 100 MG TAB PO SCH (21:00)
[2018-01-26 07:02] VITALS: BP 137/77; PULSE 83; RESP 18; TEMP 97.7; O2SAT 99
[2018-01-26] MEDS: CETIRIZINE HCL 10 MG TAB PO SCH (08:44)
[2018-01-26] MEDS: risperiDONE 1 MG TAB PO SCH ×2 (08:44→18:25)
[2018-01-26] MEDS: carBAMazepine 200 MG TAB PO SCH ×2 (08:45→20:42)
[2018-01-26] MEDS: MONTELUKAST SODIUM 10 MG TAB PO SCH (08:45)
--- NOTE | 2018-01-26 14:02 | HHI.PYPN ---
Subjective Remarks Patient seen in day room with nurse Julia, chart review, patient compliant medications, patient discussed with nurse. Patient showing no significant miss behavior. Initial somewhat intrusive quite childlike asking for money. It appears will be a placement available on 02/02 [facility]. We will check Tegretol blood level over tomorrow morning Review of Systems Except as stated in HPI: all other systems reviewed are Neg Mental Status Examination Appearance: Appropriate (clean, casually dressed) Consciousness: Alert Orientation: Person Motor Activity: Normal gait Speech: Other (mechanical tone, loud) Language: Other (limited vocabulary) Fund of Knowledge: Poor Attention and Concentration: Inadequate Memory: Impaired Mood: Other (labile) Affect: Flat Thought Process & Associations: Other (concrete) Thought Content: Other Hallucination Type: None Delusion Type: None Suicidal Ideation: No Suicidal Plan: No Suicidal Intention: No Homicidal Ideation: No Homicidal Plan: No Homicidal Intention: No Insight: Poor Judgment: Poor Results Vitals/IOs Vital Signs Date Time Temp Pulse Resp B/P (MAP) Pulse Ox O2 Delivery O2 Flow Rate FiO2 01/26/18 07:02 97.7 83 18 137/77 (97) 99 Assessment & Plan Problem List: (1) Autism spectrum disorder ICD Codes: F84.0 - Autistic disorder Status: Acute (2) Impulse control disorder ICD Codes: F63.9 - Impulse disorder, unspecified Status: Acute Assessment & Plan Estimated LOS: days patient no significant changes in behavior, he is concerned to be redirectable. Compliant medications. It appears placement will be available on 02/02. We'll check a level tomorrow morning Justification for Cont. Inpt. At this time patient will decompensate if not placed in an appropriate level of care Discharge Planning Possible discharge 02/02 to prison in [facility] Request HC Surrog/Guard Advoc?: Yes Guillermo Amaya MD Jan 26, 2018 14:02
[2018-01-26 18:23] VITALS: BP 117/57; PULSE 90; RESP 18; TEMP 95.9; O2SAT 98
[2018-01-26] MEDS: traZODone HCL 100 MG TAB PO SCH (20:42)
[2018-01-27 06:05] VITALS: BP 132/89; PULSE 106; RESP 18; TEMP 97.4; O2SAT 99
[2018-01-27] MEDS: MONTELUKAST SODIUM 10 MG TAB PO SCH (08:13)
[2018-01-27] MEDS: CETIRIZINE HCL 10 MG TAB PO SCH (08:13)
[2018-01-27] MEDS: carBAMazepine 200 MG TAB PO SCH ×2 (08:13→20:29)
[2018-01-27] MEDS: risperiDONE 1 MG TAB PO SCH ×2 (08:13→18:42)
--- NOTE | 2018-01-27 14:08 | HHI.PYPN ---
Subjective Remarks Reviewed electronic medical record and discuss case with staff. Staff reports patient has had no changes. Follow-up was conducted and day room. Patient sleeping with his head on the table. Patient has an appropriate placement will be discharged on February 02. Mental Status Examination Appearance: Appropriate (clean, casually dressed) Consciousness: Alert Orientation: Person Motor Activity: Normal gait Speech: Other (mechanical tone, loud) Language: Other (limited vocabulary) Fund of Knowledge: Poor Attention and Concentration: Inadequate Memory: Impaired Mood: Other (labile) Affect: Flat Thought Process & Associations: Other (concrete) Thought Content: Other Hallucination Type: None Delusion Type: None Suicidal Ideation: No Suicidal Plan: No Suicidal Intention: No Homicidal Ideation: No Homicidal Plan: No Homicidal Intention: No Insight: Poor Judgment: Poor Results Labs Test 01/27/18 05:50 Carbamazepine (Tegretol) Level 11.7 MCG/ML Vitals/IOs Vital Signs Date Time Temp Pulse Resp B/P (MAP) Pulse Ox O2 Delivery O2 Flow Rate FiO2 01/27/18 06:05 97.4 106 18 132/89 (103) 99 Assessment & Plan Problem List: (1) Autism spectrum disorder ICD Codes: F84.0 - Autistic disorder Status: Acute (2) Impulse control disorder ICD Codes: F63.9 - Impulse disorder, unspecified Status: Acute Assessment & Plan Estimated LOS: Awaiting placement on February 02. Justification for Cont. Inpt. Moving this patient to a lower level of care would result in decompensation. Request HC Surrog/Guard Advoc?: Yes Nicol Batres Jan 27, 2018 14:07
[2018-01-27] MEDS: traZODone HCL 100 MG TAB PO SCH (20:29)
[2018-01-28] MEDS: CETIRIZINE HCL 10 MG TAB PO SCH (08:06)
[2018-01-28] MEDS: carBAMazepine 200 MG TAB PO SCH ×2 (08:06→20:36)
[2018-01-28] MEDS: MONTELUKAST SODIUM 10 MG TAB PO SCH (08:06)
[2018-01-28] MEDS: risperiDONE 1 MG TAB PO SCH ×2 (08:07→18:34)
--- NOTE | 2018-01-28 11:59 | HHI.PYPN ---
Subjective Remarks Reviewed electronic medical record and discussed case with staff. Patient has been having several behavioral issues today. Staff reports that he threw a bucket of condiments in the day room and had been punching the window. This provider observed patient on hallway yelling and hitting doors and windows. Patient's as needed Thorazine has been changed to a twice daily scheduled dose. We will continue to monitor attempt to psychiatrically stabilize in anticipation of a safe placement. Mental Status Examination Appearance: Appropriate (clean, casually dressed) Consciousness: Alert Orientation: Person Motor Activity: Normal gait Speech: Other (mechanical tone, loud) Language: Other (limited vocabulary) Fund of Knowledge: Poor Attention and Concentration: Inadequate Memory: Impaired Mood: Other (labile) Affect: Flat Thought Process & Associations: Other (concrete) Thought Content: Other Hallucination Type: None Delusion Type: None Suicidal Ideation: No Suicidal Plan: No Suicidal Intention: No Homicidal Ideation: No Homicidal Plan: No Homicidal Intention: No Insight: Poor Judgment: Poor Results Vitals/IOs Vital Signs Date Time Temp Pulse Resp B/P (MAP) Pulse Ox O2 Delivery O2 Flow Rate FiO2 01/27/18 06:05 97.4 106 18 132/89 (103) 99 Assessment & Plan Problem List: (1) Autism spectrum disorder ICD Codes: F84.0 - Autistic disorder Status: Acute (2) Impulse control disorder ICD Codes: F63.9 - Impulse disorder, unspecified Status: Acute Assessment & Plan Estimated LOS: Placement for safe discharge is being sought. We will continue to monitor and titrate medication. Justification for Cont. Inpt. This patient has no ability to care for self. Moving him to a lower level of care would result in decompensation. Request HC Surrog/Guard Advoc?: Yes Nicol Batres Jan 28, 2018 11:58
[2018-01-28] MEDS: traZODone HCL 100 MG TAB PO SCH (20:36)
[2018-01-29 05:52] VITALS: BP 123/71; PULSE 93; RESP 16; TEMP 98; O2SAT 98
[2018-01-29] MEDS: MONTELUKAST SODIUM 10 MG TAB PO SCH (08:05)
[2018-01-29] MEDS: CETIRIZINE HCL 10 MG TAB PO SCH (08:05)
[2018-01-29] MEDS: risperiDONE 1 MG TAB PO SCH ×2 (08:06→17:40)
[2018-01-29] MEDS: carBAMazepine 200 MG TAB PO SCH ×2 (08:06→20:30)
--- NOTE | 2018-01-29 13:36 | HHI.PYPN ---
Subjective Remarks Reviewed electronic medical record and discussed case with staff. Patient's follow-up was conducted in the hallway. Per staff patient has shown some improvement today. So far today he has not had any behavior requiring as needed medications. He has been interacting appropriately in the day room, and compliant with staff. We will continue with the scheduled Thorazine as he seems to show improvement. Mental Status Examination Appearance: Appropriate (clean, casually dressed) Consciousness: Alert Orientation: Person Motor Activity: Normal gait Speech: Other (mechanical tone, loud) Language: Other (limited vocabulary) Fund of Knowledge: Poor Attention and Concentration: Inadequate Memory: Impaired Mood: Other (labile) Affect: Flat Thought Process & Associations: Other (concrete) Thought Content: Other Hallucination Type: None Delusion Type: None Suicidal Ideation: No Suicidal Plan: No Suicidal Intention: No Homicidal Ideation: No Homicidal Plan: No Homicidal Intention: No Insight: Poor Judgment: Poor Results Vitals/IOs Vital Signs Date Time Temp Pulse Resp B/P (MAP) Pulse Ox O2 Delivery O2 Flow Rate FiO2 01/29/18 05:52 98.0 93 16 123/71 (88) 98 Assessment & Plan Problem List: (1) Autism spectrum disorder ICD Codes: F84.0 - Autistic disorder Status: Acute (2) Impulse control disorder ICD Codes: F63.9 - Impulse disorder, unspecified Status: Acute Assessment & Plan Estimated LOS: Awaiting safe placement discharge. Justification for Cont. Inpt. Moving this patient to a lower level of care would result and decompensation. Mr. Bro lacks capacity for self-care. Request HC Surrog/Guard Advoc?: Yes Nicol Batres Jan 29, 2018 13:36
[2018-01-29] MEDS: traZODone HCL 100 MG TAB PO SCH (20:30)
[2018-01-30 06:17] VITALS: BP 113/83; PULSE 105; RESP 16; TEMP 96; O2SAT 98
[2018-01-30] MEDS: risperiDONE 1 MG TAB PO SCH ×2 (08:00→17:13)
[2018-01-30] MEDS: MONTELUKAST SODIUM 10 MG TAB PO SCH (08:00)
[2018-01-30] MEDS: carBAMazepine 200 MG TAB PO SCH ×2 (08:01→21:26)
[2018-01-30] MEDS: CETIRIZINE HCL 10 MG TAB PO SCH (08:01)
--- NOTE | 2018-01-30 13:32 | HHI.PYPN ---
Subjective Remarks Patient was seen and case discussed with nursing. Patient is behaving well on the unit. Has not needed any ETO's. Compliant with medications. Remains severely cognitively impaired Mental Status Examination Appearance: Appropriate (clean, casually dressed) Consciousness: Alert Orientation: Person Motor Activity: Normal gait Speech: Other (mechanical tone, loud) Language: Other (limited vocabulary) Fund of Knowledge: Poor Attention and Concentration: Inadequate Memory: Impaired Mood: Other (labile) Affect: Flat Thought Process & Associations: Other (concrete) Thought Content: Other Hallucination Type: None Delusion Type: None Suicidal Ideation: No Suicidal Plan: No Suicidal Intention: No Homicidal Ideation: No Homicidal Plan: No Homicidal Intention: No Insight: Poor Judgment: Poor Results Vitals/IOs Vital Signs Date Time Temp Pulse Resp B/P (MAP) Pulse Ox O2 Delivery O2 Flow Rate FiO2 01/30/18 06:17 96.0 105 16 113/83 (93) 98 Assessment & Plan Problem List: (1) Autism spectrum disorder ICD Codes: F84.0 - Autistic disorder Status: Acute (2) Impulse control disorder ICD Codes: F63.9 - Impulse disorder, unspecified Status: Acute Assessment & Plan Continue current treatment plan Justification for Cont. Inpt. Patient would decompensate in a less restrictive setting Request HC Surrog/Guard Advoc?: Yes Everardo Rose DO Jan 30, 2018 13:32
[2018-01-30 17:59] VITALS: BP 119/65; PULSE 99; RESP 17; TEMP 98.2; O2SAT 97
[2018-01-30] MEDS: traZODone HCL 100 MG TAB PO SCH (21:25)
[2018-01-31 05:31] VITALS: BP 116/76; PULSE 81; RESP 19; TEMP 97.4; O2SAT 97
[2018-01-31] MEDS: carBAMazepine 200 MG TAB PO SCH ×2 (08:44→20:23)
[2018-01-31] MEDS: MONTELUKAST SODIUM 10 MG TAB PO SCH (08:44)
[2018-01-31] MEDS: CETIRIZINE HCL 10 MG TAB PO SCH (08:45)
[2018-01-31] MEDS: risperiDONE 1 MG TAB PO SCH ×2 (08:45→17:18)
--- NOTE | 2018-01-31 13:29 | HHI.PYPN ---
Subjective Remarks Patient was seen and case discussed with nursing. Patient remains at baseline behavior. Internally stimulated, severe cognitive deficits. Mental Status Examination Appearance: Appropriate (clean, casually dressed) Consciousness: Alert Orientation: Person Motor Activity: Normal gait Speech: Other (mechanical tone, loud) Language: Other (limited vocabulary) Fund of Knowledge: Poor Attention and Concentration: Inadequate Memory: Impaired Mood: Other (labile) Affect: Flat Thought Process & Associations: Other (concrete) Thought Content: Other Hallucination Type: None Delusion Type: None Suicidal Ideation: No Suicidal Plan: No Suicidal Intention: No Homicidal Ideation: No Homicidal Plan: No Homicidal Intention: No Insight: Poor Judgment: Poor Results Vitals/IOs Vital Signs Date Time Temp Pulse Resp B/P (MAP) Pulse Ox O2 Delivery O2 Flow Rate FiO2 01/31/18 05:31 97.4 81 19 116/76 (89) 97 Assessment & Plan Problem List: (1) Autism spectrum disorder ICD Codes: F84.0 - Autistic disorder Status: Acute (2) Impulse control disorder ICD Codes: F63.9 - Impulse disorder, unspecified Status: Acute Assessment & Plan Continue current treatment plan Justification for Cont. Inpt. Patient will decompensate in a less restrictive setting Request HC Surrog/Guard Advoc?: Yes Everardo Rose DO Jan 31, 2018 13:29
[2018-01-31 17:31] VITALS: BP 109/82; PULSE 90; RESP 18; TEMP 97.3; O2SAT 98
[2018-01-31] MEDS: traZODone HCL 100 MG TAB PO SCH (20:23)
[2018-02-01] MEDS: risperiDONE 1 MG TAB PO SCH ×2 (08:03→18:00)
[2018-02-01] MEDS: MONTELUKAST SODIUM 10 MG TAB PO SCH (08:03)
[2018-02-01] MEDS: CETIRIZINE HCL 10 MG TAB PO SCH (08:03)
[2018-02-01] MEDS: carBAMazepine 200 MG TAB PO SCH ×2 (08:04→20:45)
--- NOTE | 2018-02-01 10:33 | PD.TTN ---
Patient Problems 1. Discharge planning 2. Medication compliance 3. Knowledge deficit 4. Lack of coping skills Progress Toward Goals Provider Present: Dr. Walker Amaya, Dr. Marek Acosta Provider Input: Discharged tomorrow 02/02/18 Psychiatric Counselors Present: Janae Villa, [facility], Jose Ritchie Jr., [facility], Gracie Meneess, [facility], Flores Nation, [facility] Psych Therapist Input: Patient discharged tomorrow 02/02/18 Group Spec/RT/OT/MON Present: Maria A Duckworth, GPS, Rivera Frankel, OT Group Spec/RT/OT/MON Input: Pt attends select group activities . Pt is easily redirected when attending the group activiites. Discharge Plan Other [facility] found placement for this patient. Patient will be discharged to [facility] on 02/02/18 Documentation Scribe: Maria A Roblero Feb 01, 2018 10:33
--- NOTE | 2018-02-01 14:15 | HHI.PYPN ---
Subjective Remarks Patient seen on unit with nurse Del Valle, chart review, patient compliant medications, patient behavior overall is somewhat calmer there appears be less episodes of dyscontrol. I just talked to the patient's counselor Jose. It appears the now is a fpc available to this man on Saturday 02/03 that is in [facility] as opposed to [facility] placement tomorrow. In consideration of patient's elderly parents, the love dedication the patient given to this man all his life I feel that accepting the placement that is much closer and easier for the patient's parents to visit is the right thing to do. Thus we will continue patient's hospitalization until the bed is available at the [facility] on Saturday 02/03 Review of Systems Except as stated in HPI: all other systems reviewed are Neg Mental Status Examination Appearance: Appropriate (clean, casually dressed) Consciousness: Alert Orientation: Person Motor Activity: Normal gait Speech: Other (mechanical tone, loud) Language: Other (limited vocabulary) Fund of Knowledge: Poor Attention and Concentration: Inadequate Memory: Impaired Mood: Other (labile) Affect: Flat Thought Process & Associations: Other (concrete) Thought Content: Other Hallucination Type: None Delusion Type: None Suicidal Ideation: No Suicidal Plan: No Suicidal Intention: No Homicidal Ideation: No Homicidal Plan: No Homicidal Intention: No Insight: Poor Judgment: Poor Results Vitals/IOs Vital Signs Date Time Temp Pulse Resp B/P (MAP) Pulse Ox O2 Delivery O2 Flow Rate FiO2 01/31/18 17:31 97.3 90 18 109/82 (91) 98 Assessment & Plan Problem List: (1) Autism spectrum disorder ICD Codes: F84.0 - Autistic disorder Status: Acute (2) Impulse control disorder ICD Codes: F63.9 - Impulse disorder, unspecified Status: Acute Assessment & Plan Estimated LOS: days it appears there is a more appropriate placement available for this patient on Saturday 02/03 that is much closer to parents home then [place] ([facility]) we will delay patient's discharge until Thursday for placement in this facility. It is the right thing to do for this entire family Justification for Cont. Inpt. See above Discharge Planning See above Request HC Surrog/Guard Advoc?: Yes Guillermo Amaya MD Feb 01, 2018 14:15
[2018-02-01 17:11] VITALS: BP 106/75; PULSE 83; RESP 16; TEMP 97.3; O2SAT 100
[2018-02-01] MEDS: traZODone HCL 100 MG TAB PO SCH (20:46)
[2018-02-02 06:17] VITALS: BP 102/56; PULSE 75; RESP 18; TEMP 98.3; O2SAT 99
[2018-02-02] MEDS: MONTELUKAST SODIUM 10 MG TAB PO SCH (08:13)
[2018-02-02] MEDS: CETIRIZINE HCL 10 MG TAB PO SCH (08:13)
[2018-02-02] MEDS: risperiDONE 1 MG TAB PO SCH ×2 (08:13→16:58)
[2018-02-02] MEDS: carBAMazepine 200 MG TAB PO SCH ×2 (08:13→21:11)
[2018-02-02] MEDS ORDERED: TEGR400T PO (11:09)
[2018-02-02] MEDS ORDERED: chlorproMAZINE PO (11:09)
[2018-02-02] MEDS ORDERED: RISP2TAB37 PO (11:09)
[2018-02-02] MEDS ORDERED: CETI10CA3 PO (11:09)
[2018-02-02] MEDS ORDERED: TRAZ1TAB14 PO (11:09)
--- NOTE | 2018-02-02 11:16 | HHI.DS ---
Psychiatry Discharge Summary Inpatient Psychiatric care?: Yes Advance Directive: No Reason Not Provided: none Mental Health AdvanceDirective: No Health Care Proxy: No Admission Admission Date Jan 09, 2018 at 17:51 Admission Diagnosis: (1) Autism spectrum disorder ICD Code: F84.0 - Autistic disorder (2) Impulse control disorder ICD Code: F63.9 - Impulse disorder, unspecified Brief History Patient 32-year-old Khmer male adopted by his parents at about 10 months of age comes here under [facility] act signed by Aliyah HUTCHINS dated January 09, 2018 at 6 PM stating autism impulse control disorder, that she document reviewed and agreed with also states the patient was increasing in aggressive behavior towards parents not sleeping failed medication adjustments. Patient is an outpatient with Dr. pino. Patient was initially seen by me J pod with the nurse practitioner patient severely autistic very infantile and his responses markedly explosive impulsive violent screaming kicking and hitting and biting. This necessitated an ETO of Zyprexa Ativan and Benadryl in the J pod patient did respond to it and had a fairly good night. Today on 2700 patient is again out of control the sustain another repeat of that he ETO. However he is still alert angry volatile and impulsive. He is being kept on the short-haul at the present time. Patient has had multiple visits with us. The to contact patient's adoptive parents who are elderly to discuss future treatment medications and possible placement alternatives it appears her return with the patient's parents may not be a safe placement Patient has been consulted to me for second opinion. In my evaluation the patient was completely slept after being medicated with multiple ETOs yesterday. As per nurse report, the patient has been extremely agitated, verbally and physically aggressive with the staff and other patients, he had to be restrained physically and chemically, and he has been extremely difficult to deal with in the unit. Tobacco Use In Past 30 Days: No Tobacco Past 30 Days Alcohol Use: Never Hospital Course Patient's hospital course was somewhat chaotic, his cognitive disabilities and impulsivity initially were somewhat out of control necessitating multiple ETO. However as medication was management patient became somewhat more adapted for unit the behaviors decreased. With the addition of the scheduled Thorazine and stabilization of a Tegretol blood level around the 11 his behaviors. It appears there is a bed available tomorrow at therapeutic behavioral placement. To be discharged tomorrow morning to that fci. Rx 1 month. To follow- up with services through that facility Results Blood Pressure 102 / 56 Vital Signs Date Time Temp Pulse Resp B/P (MAP) Pulse Ox O2 Delivery O2 Flow Rate FiO2 02/02/18 06:17 98.3 75 18 102/56 (71) 99 Laboratory Results Test 01/14/18 06:16 Cholesterol Level 201 MG/DL (120-200) HDL Cholesterol 67.4 MG/DL (40.0-60.0) Hemoglobin A1c 5.3 % (4.3-6.0) LDL Cholesterol 110 MG/DL (0-99) Triglycerides Level 119 MG/DL (42-150) Summary of Procedures None done Pending results at discharge: No Medications # of Antipsychotic meds at D/C: 2 Appropriate >1 Antipsych meds?: 2 (would consider taper either of the Respinol or Thorazine depending on patient's behavior in his new placement) Approp Antipsych med options 1 - Minimum of three failed multiple trials of monotherapy. 2 - Documented plan to taper to monotherapy due to previous use of multiple meds OR cross-taper in progress at D/C. 3 - Documentation of augmentation of Clozapine. 4 - Justification other than those listed in allowable values 1-3, document here : Discharge Discharge Date: Feb 03, 2018 Discharge Diagnosis: (1) Impulse control disorder Diagnosis: Principal ICD Code: F63.9 - Impulse disorder, unspecified Status: Acute (2) Autism spectrum disorder Diagnosis: Secondary ICD Code: F84.0 - Autistic disorder Status: Acute Pt Condition on Discharge: Stable Discharge Disposition: ACLF/ASSISTED Discharge Instructions Diet Instructions: As Tolerated, No Restrictions Activities you can perform: Regular-No Restrictions Scheduled Appointment: [facility] Options Discharge Time > 30 minutes Mental Status Examination Appearance: Appropriate (clean, casually dressed) Consciousness: Alert Orientation: Person Motor Activity: Normal gait Speech: Other (mechanical tone, loud) Language: Other (limited vocabulary) Fund of Knowledge: Poor Attention and Concentration: Inadequate Memory: Impaired Mood: Other (labile) Affect: Flat Thought Process & Associations: Other (concrete) Thought Content: Other Hallucination Type: None Delusion Type: None Suicidal Ideation: No Suicidal Plan: No Suicidal Intention: No Homicidal Ideation: No Homicidal Plan: No Homicidal Intention: No Insight: Poor Judgment: Poor Discharge/Advance Care Plan Health Problems: (1) Autism spectrum disorder (2) Impulse control disorder Goals to promote your health * To prevent worsening of your condition and complications * To maintain your health at the optimal level Directions to meet your goals Take your medications as prescribed Follow your dietary instruction Follow activity as directed Keep your appointments as scheduled Take your immunizations and boosters as scheduled If your symptoms worsen call your PCP, if no PCP go to Urgent Care Center or Emergency Room For 25/05 questions related to your inpatient stay or results of tests pending at discharge, please contact Dr. Guillermo Amaya at Smoking is Dangerous to Your Health. Avoid second hand smoking Guillermo Amaya MD Feb 02, 2018 11:16
[2018-02-02 18:19] VITALS: BP 131/93; PULSE 90; RESP 18; TEMP 97.4; O2SAT 100
[2018-02-02] MEDS: traZODone HCL 100 MG TAB PO SCH (21:11)
[2018-02-03] MEDS: risperiDONE 1 MG TAB PO SCH (08:31)
[2018-02-03] MEDS: MONTELUKAST SODIUM 10 MG TAB PO SCH (08:31)
[2018-02-03] MEDS: carBAMazepine 200 MG TAB PO SCH (08:31)
[2018-02-03] MEDS: CETIRIZINE HCL 10 MG TAB PO SCH (08:32)
[2018-02-03] MEDS ORDERED: MONT10TA2 PO (10:37)
== END 2018-02-03 09:45 | DRG 884 ==
LOC: NEPD 09:33 → NEDA 17:51 → H270 20:47
PROVIDERS: ADMIT Psychiatry & Neurology Psychiatry; ATTEND Psychiatry & Neurology Psychiatry
DX: F84.0 Autistic disorder (principal); F73 Profound intellectual disabilities; F63.9 Impulse disorder, unspecified
CPT/HCPCS: 80048; 80053; 80061; 80156; 80307; 81001; 83036; 84443; 85025; 95819; 96372; J1200; J2060; J3230; J3486

== ENCOUNTER 2018-09-17 10:32 | Inpatient (IN) ==
--- NOTE | 2018-09-17 11:18 | ED ---
HPI General Chief complaint: Psychiatric Symptoms Stated complaint: psych eval Time Seen by Provider: 09/17/18 11:13 History of Present Illness HPI narrative: This is a 33-year-old male who presents for psychiatric evaluation. He was dropped off by someone at his care home. Reportedly he has been breaking mirrors, throwing chairs, breaking his roommate's belongings, breaking a door, being generally agitated and violent. According to chart review the patient has a history of autism spectrum disorder, impulse control disorder. He is on several medications including Tegretol, Risperdal, trazodone , Ativan. The patient is not able to provide any additional information. He has been seen here under similar circumstances in the past. Related Data Allergies Allergy/AdvReac Type Severity Reaction Status Date / Time clarithromycin Allergy Mild Unverified 09/02/17 17:52 dextromethorphan Allergy Mild Unverified 09/02/17 17:52 methylphenidate Allergy Mild Unverified 09/02/17 17:52 pseudoephedrine Allergy Mild Unverified 09/02/17 17:52 Review of Systems ROS Unobtainable ROS Unobtainable: unobtainable due to mental status PMFSH Social History Social History Recent Travel in [facility] within the Last 8 Weeks: No Recent Out of Country Travel within the Last 8 Weeks: No Exam Narrative Exam Narrative: GENERAL: Well-developed well-nourished male in no acute distress SKIN: Warm and dry. HEAD: Atraumatic. Normocephalic. EYES: Pupils equal and round. No scleral icterus. No injection or drainage. ENT: No nasal bleeding or discharge. Mucous membranes pink and moist. NECK: Trachea midline. No JVD. CARDIOVASCULAR: Regular rate and rhythm. No murmur appreciated. RESPIRATORY: No accessory muscle use. Clear to auscultation. Breath sounds equal bilaterally. GASTROINTESTINAL: Abdomen soft, non-tender, nondistended. Hepatic and splenic margins not palpable. MUSCULOSKELETAL: No obvious deformities. No clubbing. No cyanosis. No edema. NEUROLOGICAL: Awake and alert. No obvious cranial nerve deficits. Intellectual impairment is obvious. Course Initial Documented Vital Signs Temperature 97.2 F L 09/17/18 10:41 Pulse Rate 95 H 09/17/18 10:41 Respiratory Rate 24 09/17/18 10:41 Blood Pressure 134/86 09/17/18 10:41 Pulse Oximetry 99 09/17/18 10:41 Last Documented Vital Signs Temperature 97.2 F L 09/17/18 10:41 Pulse Rate 95 H 09/17/18 10:41 Respiratory Rate 24 09/17/18 10:41 Blood Pressure 134/86 09/17/18 10:41 Pulse Oximetry 99 09/17/18 10:41 Medical Decision Making MDM Narrative Medical decision making narrative: Mental health screening discussed with the patient. Psychiatric screen ordered. Lab work has been reviewed. The patient is medically cleared for psychiatric disposition. Medical Screen Exam Complete: Yes Emergency Medical Condition: Yes Differential Diagnosis Differential Diagnosis: Intermittent explosive disorder, adjustment reaction, autism, traumatic brain injury, acute psychosis, medication noncompliance Lab Data Result diagrams: 09/17/18 11:06 09/17/18 13:07 Lab Results 09/17/18 09/17/18 Range/Units 11:06 13:07 WBC 6.2 (4.0-11.0) th/mm3 RBC 4.77 (4.50-5.90) mil/mm3 Hgb 15.3 (13.0-17.0) gm/dL Hct 43.4 (39.0-51.0) % MCV 90.8 (80.0-100.0) fL MCH 32.1 (27.0-34.0) pg MCHC 35.4 (32.0-36.0) % RDW 13.2 (11.6-17.2) % Plt Count 133 L (150-450) th/mm3 MPV 8.0 (7.0-11.0) fL Neut % (Auto) 71.6 H (16.0-70.0) % Lymph % (Auto) 22.5 (9.0-44.0) % [place] % (Auto) 5.3 (0.0-8.0) % Eos % (Auto) 0.3 (0.0-4.0) % Baso % (Auto) 0.3 (0.0-2.0) % Neut # (Auto) 4.4 (1.8-7.7) th/mm3 Lymph # (Auto) 1.4 (1.0-4.8) th/mm3 [place] # (Auto) 0.3 (0.0-0.9) th/mm3 Eos # (Auto) 0.0 (0.0-0.4) th/mm3 Baso # (Auto) 0.0 (0.0-0.2) th/mm3 WBC Differential . Differential Comment Auto diff final Sodium 139 (136-145) meq/L Potassium 4.1 (3.5-5.1) meq/L Chloride 103 (98-107) meq/L Carbon Dioxide 30.9 (21.0-32.0) meq/L Anion Gap 5 (5-15) meq/L BUN 10 (7-18) mg/dL Creatinine 0.84 (0.60-1.30) mg/dL Estimated GFR Greater than 89 (>89) mL/min Random Glucose 94 (74-106) mg/dL Calcium 8.3 L (8.5-10.1) mg/dL Magnesium 2.0 (1.5-2.5) mg/dL Total Bilirubin 0.3 (0.2-1.0) mg/dL AST 17 (15-37) U/L ALT 35 (12-78) U/L Alkaline Phosphatase 124 H (45-117) U/L Total Protein 7.3 (6.4-8.2) g/dL Albumin 3.9 (3.4-5.0) g/dL TSH 2.680 (0.358-3.740) uIU/mL Carbamazepine 10.2 (4.0-12.0) mcg/mL Serum Alcohol Less than 3 (0-5) mg/dL Discharge Plan Discharge Disposition Patient Disposition: 30 Still Patient Discharge Condition Condition: Stable Discharge Details Diagnosis: Encounter for medical clearance for patient hold Physicians Team ED Provider: James Cunningham ED Midlevel Provider: Joshua Gonzalez Primary Care Provider: Forrest Ramos Status ED Status: With Doctor
[2018-09-17 11:27] LABS: Baso % (Auto) 0.3 % (0.0-2.0); Eos % (Auto) 0.3 % (0.0-4.0); Hematocrit 43.4 % (39.0-51.0); Hemoglobin 15.3 gm/dL (13.0-17.0); Lymph # (Auto) 1.4 th/mm3 (1.0-4.8); Lymph % (Auto) 22.5 % (9.0-44.0); Mean Corpuscular HGB Conc 35.4 % (32.0-36.0); Mean Corpuscular Hemoglobin 32.1 pg (27.0-34.0); Mean Corpuscular Volume 90.8 fL (80.0-100.0); Mono # (Auto) 0.3 th/mm3 (0.0-0.9); Mono % (Auto) 5.3 % (0.0-8.0); Neut # (Auto) 4.4 th/mm3 (1.8-7.7); Neut % (Auto) 71.6 % (16.0-70.0); Platelet Count 133 th/mm3 (150-450); Red Blood Count 4.77 mil/mm3 (4.50-5.90); Red Cell Distribution Width 13.2 % (11.6-17.2); White Blood Count 6.2 th/mm3 (4.0-11.0)
[2018-09-17 13:47] LABS: Alanine Aminotransferase 35 U/L (12-78); Albumin 3.9 g/dL (3.4-5.0); Anion Gap 5 meq/L (5-15); Aspartate Aminotransferase 17 U/L (15-37); Blood Urea Nitrogen 10 mg/dL (7-18); Calcium 8.3 mg/dL (8.5-10.1); Carbon Dioxide 30.9 meq/L (21.0-32.0); Chloride 103 meq/L (98-107); Glomerular Filtration Rate Greater Than 89 mL/min (>89); Glucose,Random 94 mg/dL (74-106); Potassium 4.1 meq/L (3.5-5.1); Sodium 139 meq/L (136-145)
[2018-09-17 13:56] LABS: Alkaline Phosphatase 124 U/L (45-117); Carbamazepine (Tegretol) 10.2 mcg/mL (4.0-12.0); Total Protein 7.3 g/dL (6.4-8.2)
[2018-09-17] MEDS ORDERED: Acetaminophen 325 MG Tablet PO PRN (16:11)
[2018-09-17] MEDS ORDERED: Aluminum/Magnesium/Simethacone Susp 30 ML UDC PO PRN (16:11)
--- NOTE | 2018-09-17 16:57 | P.CONPSY ---
Provisional Diagnosis Admission Date: September 17, 2018 16:21 [place] I.: Impulse control disorder [place] II.: Autism spectrum disorder History of Present Illness Primary Care Provider: Forrest Ramos History of Present Illness: This is a 33-year old single, male who presents voluntarily to this facility after being dropped off by his senior care. This patient is well-known to this facility and the psychiatric department. Reviewed electronic medical record, labs, discussed case with staff. Patient was evaluated and J109. He was found lying on the bed and was unable to answer any questions. When asked how he was today he could only reply, "I want to see my mommy". Throughout my attempt to communicate with the patient he was observed to be masturbating through his hospital [facility]. Upon leaving the room he was also observed via the camera to continue to masturbate for extended periods of time. His parents reported that this has been an ongoing issue since approximately December. Additionally, he had recently become violent and aggressive at his senior care throwing furniture at staff and other patients and breaking things. His parents are elderly and advised that they are unable to care for him at their home at this time as he poses a danger to them. He was placed under a Rousseau act by the ED physician due to his being a danger to others. Review of Systems All other systems reviewed negative except as stated in HPI PMFSH - History History Provided By: Family Member - Tobacco History Smoking Status: Unknown if ever smoked - Alcohol History How Often Do You Have a Drink Containing Alcohol: Unable to Obtain - Substance Use History Substance History: Unable to Obtain - Travel History Recent Travel in the [place] Within the Last 8 Weeks: No Recent Travel Out of the Country Within the Last 8 Weeks: No - Immunization History Tetanus Immunization: Unsure Medications and Allergies Active Medications: Active Medications Acetaminophen (Tylenol) 650 mg PO Q4H PRN PRN Reason: Pain 1-5 or Temp >101F Al Hydrox/Mg Hydrox/Simethicone (Mag-Al Plus Susp Liq) 30 ml PO Q6H PRN PRN Reason: DYSPEPSIA Cetirizine HCl (Zyrtec) 10 mg PO DAILY [facility] Chlorpromazine HCl (Thorazine) 50 mg PO BID [facility] Lorazepam (Ativan) 1 mg PO BID [facility] Montelukast Sodium (Singulair) 10 mg PO QPM [facility] Non-Formulary Medication (Carbamazepine [Carbamazepine]) 300 mg PO BID [facility] Non-Formulary Medication (Risperidone [Risperidone]) 4 mg PO DAILY [facility] Non-Formulary Medication (Trazodone [Trazodone]) 150 mg PO HS [facility] Non-Formulary Medication (Risperidone [Risperidone]) 2 mg PO HS [facility] Allergies Allergy/AdvReac Type Severity Reaction Status Date / Time clarithromycin Allergy Mild Unverified 09/02/17 17:52 dextromethorphan Allergy Mild Unverified 09/02/17 17:52 methylphenidate Allergy Mild Unverified 09/02/17 17:52 pseudoephedrine Allergy Mild Unverified 09/02/17 17:52 Home Medications Medication Instructions Recorded Confirmed Type carbamazepine 300 mg PO BID 09/17/18 09/17/18 History cetirizine 10 mg PO DAILY 09/17/18 09/17/18 History chlorpromazine 50 mg PO BID 09/17/18 09/17/18 History lorazepam [Ativan] 1 mg PO BID 09/17/18 09/17/18 History montelukast 10 mg PO QPM 09/17/18 09/17/18 History risperidone 2 mg PO HS 09/17/18 09/17/18 History risperidone 4 mg PO DAILY 09/17/18 09/17/18 History trazodone 150 mg PO HS 09/17/18 09/17/18 History Exam Vital signs: Vital Signs 09/17/18 10:41 09/17/18 15:10 Temperature 97.2 F L Pulse Rate 95 H 92 H Respiratory Rate 24 Blood Pressure 134/86 127/80 Pulse Oximetry 99 100 - Constitutional average body habitus, agitated - Detailed Psychiatric Exam Mood and affect: Present: flat Thought process: Present: impoverished Thought content: Present: obsessions Mental Status Examination Appearance: Disheveled Consciousness: Alert Orientation: Person Motor Activity: Normal gait Speech: Other (Paucity of speech) Language: Perseveration ("I want my mommy") Fund of Knowledge: Poor Attention and Concentration: Inadequate Memory: Impaired Mood: Anxious Affect: Anxious Thought Process & Associations: Other (Poverty of thought) Thought Content: Obsessions Hallucination Type: None Delusion Type: None Suicidal Ideation: No Suicidal Plan: No Suicidal Intention: No Homicidal Ideation: No Homicidal Plan: No Homicidal Intention: No Insight: Poor Judgment: Poor Assessment and Plan - Assessment (1) Impulse control disorder Code(s): F63.9 - Impulse disorder, unspecified Status: Acute - Plan Plan: Estimated LOS: [7] days patient has been admitted to a locked psychiatric unit for further evaluation and treatment as deemed necessary. Justification for Continued Inpatient Stay: Moving this patient to a less restrictive environment would likely result in decompensation.
[2018-09-17] MEDS ORDERED: Montelukast 10 MG Tablet PO SCH (18:00)
[2018-09-17] MEDS: ChlorproMAZINE 50 MG Tablet PO SCH (20:35)
[2018-09-17] MEDS: LORazepam 1 MG Tablet PO SCH (20:35)
[2018-09-17] MEDS: traZODone 50 MG Tablet PO SCH (20:35)
[2018-09-17] MEDS: carBAMazepine 100 MG Chewable Tablets PO SCH (20:36)
[2018-09-17] MEDS: Montelukast 10 MG Tablet PO SCH (20:58)
[2018-09-17] MEDS ORDERED: CARBAMAZEPINE 300 MG PO SCH (21:00)
[2018-09-17] MEDS ORDERED: RISPERIDONE 2 MG PO SCH (21:00)
[2018-09-17] MEDS ORDERED: Non-Formulary Drug (Trazodone [Trazodone] 150 MG) PO SCH (21:00)
[2018-09-18] MEDS ORDERED: RISPERIDONE 4 MG PO SCH (09:00)
[2018-09-18 09:12] LABS: Anion Gap 8 meq/L (5-15); Blood Urea Nitrogen 13 mg/dL (7-18); Calcium 8.4 mg/dL (8.5-10.1); Carbon Dioxide 26.3 meq/L (21.0-32.0); Chloride 104 meq/L (98-107); Glomerular Filtration Rate Greater Than 89 mL/min (>89); Glucose,Random 110 mg/dL (74-106); Potassium 3.9 meq/L (3.5-5.1); Sodium 138 meq/L (136-145)
[2018-09-18 09:13] LABS: Cholesterol 205 mg/dL (120-200); Triglycerides 115 mg/dL (42-150)
[2018-09-18 09:15] LABS: Chol/HDL Ratio 3.87 Ratio; HDL Cholesterol 52.9 mg/dL (40.0-60.0); LDL Cholesterol,Calculated 129 mg/dL (0-99)
[2018-09-18] MEDS: carBAMazepine 100 MG Chewable Tablets PO SCH ×3 (09:46→23:35)
[2018-09-18] MEDS: LORazepam 1 MG Tablet PO SCH ×3 (11:01→23:34)
[2018-09-18] MEDS: ChlorproMAZINE 50 MG Tablet PO SCH ×3 (11:04→23:36)
[2018-09-18 13:07] LABS: Hemoglobin A1c 5.3 % (4.3-6.0)
--- NOTE | 2018-09-18 13:18 | P.HPPSY ---
Provisional Diagnosis Admission Date: September 17, 2018 16:21 [place] I.: Impulse control disorder [place] II.: Autism spectrum disorder Competence Certification of Person's Competence To Provide Express and Informed Consent I have personally examined Cayden Bro, a person being served at [facility] on, September 18, 2018 1316. Express and informed consent means consent voluntarily given in writing, by a competent person, after sufficient explanation and disclosure of the subject matter involved to enable the person to make a knowing and willful decision without any element of force, fraud, deceit, duress, or other form of constraint or coercion. This person is 18 years of age or older, is not now known to be incompetent to consent to treatment with a guardian advocate, and does not have a health care surrogate or proxy currently making medical treatment decisions. I have found this person to be one of the following: [] Competent to provide express and informed consent, as defined above, for voluntary admission to this facility and is competent to provide express and informed consent for treatment. He/she has the consistent capacity to make well reasoned, willful, and knowing decisions concerning his or her medical or mental health treatment. The person fully and consistently understands the purpose of the admission for examination/placement and is fully capable of personally exercising all rights assured [place] [x] Incompetent to provide express and informed consent to voluntary admission, and this is incompetent to provide express and informed consent to treatment. The person must be transferred to involuntary status and a petition for a guardian advocate filed with the Circuit Court. [] Refusing to provide express and informed consent to voluntary admission but is competent to provide express and informed consent for treatment. The person must be discharged or transferred to involuntary status. Form shall be completed within 24 hours of a person's arrival at the receiving facility and filed in the clinical record of each person: 1. Admitted on a voluntary basis 2. Permitted to provide express and informed consent to his/her own treatment 3. Allowed to transfer from involuntary to voluntary status 4. Prior to permitting a person to consent to his or her own treatment after having been previously found incompetent to consent to treatment. History of Present Illness Capacity: Lacks capacity Chief Complaint: Aggressive at nursing home facility History of Present Illness: Pt is a 33 YOAM with hx of Autism Spectrum Disorder, Severe and intellectual disability. He was admitted for agitation and aggression at nursing home facility. He allegedly became violent and threw furniture and chairs. He has been calm today and not aggressive. He has been intrusive with others and corners MD on unit aggressively posturing, but was easily redirected "look over there." He has been fixated on [place] and has required close redirection from staff. Later upon approach by MD, pt is very friendly and smiles. "[facility]! I want [facility]!"He is well known to service due to previous admissions. His parents are elderly and unable to care for pt. - Inpatient Certification I certify that the inpatient services were ordered in accordance with Medicare regulations governing the order. This includes certification that hospital inpatient services are reasonable and necessary and in the case of services not specified as inpatient-only under 42 CFR 419.22(n), that they are appropriately provided as inpatient services in accordance to with the 2-midnight benchmark under 43 CFR 412.3(e) I certify that inpatient psychiatric hospital services are medically necessary. Evaluation and treatment and/or diagnostic testing are expected to improve the patient's condition. The patient needs on a daily basis, active treatment furnished directly by or requiring the supervision of inpatient psychiatric facility personnel. Estimated Total Length of Stay (Days): 7 Plans for Post Hospital Care: Not yet determined Review of Systems Psychiatric: Reports other (communciation is limited due to deficits but pt denies any pain/discomfort) PMF - History History Provided By: Family Member - Medical / Surgical Hx Neg / Unobtainable Medical Problems Denied: Unable to Obtain Surgical History: Unable to Obtain (poor historian, medically cleared for psych admission) - Tobacco History Second Hand Smoke Exposure: No Tobacco Use In Past 30 Days: No Smoking Status: Unknown if ever smoked Tobacco Type: Cigarettes - Alcohol History How Often Do You Have a Drink Containing Alcohol: Unable to Obtain - Substance Use History Substance History: Unable to Obtain - Travel History Recent Travel in the [place] Within the Last 8 Weeks: No Recent Travel Out of the Country Within the Last 8 Weeks: No - Immunization History Tetanus Immunization: Unable to Assess Hx Influenza Vaccine This Season: Unable to Assess Medications and Allergies Active Medications: Active Medications Acetaminophen (Tylenol) 650 mg PO Q4H PRN PRN Reason: Pain 1-5 or Temp >101F Al Hydrox/Mg Hydrox/Simethicone (Mag-Al Plus Susp Liq) 30 ml PO Q6H PRN PRN Reason: DYSPEPSIA Carbamazepine (Tegretol Chewable) 300 mg PO BID [facility] Last Admin: 09/18/18 09:46 Dose: 300 mg Cetirizine HCl (Zyrtec) 10 mg PO DAILY [facility] Last Admin: 09/18/18 09:46 Dose: 10 mg Chlorpromazine HCl (Thorazine) 50 mg PO BID [facility] Last Admin: 09/18/18 11:04 Dose: Not Given Lorazepam (Ativan) 1 mg PO BID [facility] Last Admin: 09/18/18 11:01 Dose: Not Given Montelukast Sodium (Singulair) 10 mg PO HS [facility] Last Admin: 09/17/18 20:58 Dose: 10 mg Risperidone (Risperdal) 4 mg PO DAILY [facility] Last Admin: 09/18/18 11:02 Dose: Not Given Risperidone (Risperdal) 2 mg PO [facility] Last Admin: 09/17/18 20:35 Dose: 2 mg Trazodone HCl (Desyrel) 150 mg PO [facility] Last Admin: 09/17/18 20:35 Dose: 150 mg Allergies Allergy/AdvReac Type Severity Reaction Status Date / Time clarithromycin Allergy Mild Unverified 09/02/17 17:52 dextromethorphan Allergy Mild Unverified 09/02/17 17:52 methylphenidate Allergy Mild Unverified 09/02/17 17:52 pseudoephedrine Allergy Mild Unverified 09/02/17 17:52 Home Medications Medication Instructions Recorded Confirmed Type carbamazepine 300 mg PO BID 09/17/18 09/17/18 History cetirizine 10 mg PO DAILY 09/17/18 09/17/18 History chlorpromazine 50 mg PO BID 09/17/18 09/17/18 History lorazepam [Ativan] 1 mg PO BID 09/17/18 09/17/18 History montelukast 10 mg PO QPM 09/17/18 09/17/18 History risperidone 2 mg PO HS 09/17/18 09/17/18 History risperidone 4 mg PO DAILY 09/17/18 09/17/18 History trazodone 150 mg PO HS 09/17/18 09/17/18 History Results - Labs CBC & Chem 7: 09/17/18 11:06 09/18/18 08:30 Labs: Laboratory Results - last 24 hr 09/17/18 09/18/18 13:07 08:30 Sodium 139 138 Potassium 4.1 3.9 Chloride 103 104 Carbon Dioxide 30.9 26.3 Anion Gap 5 8 BUN 10 13 Creatinine 0.84 0.95 Estimated GFR Greater than 89 Greater than 89 Random Glucose 94 110 H Calcium 8.3 L 8.4 L Magnesium 2.0 Total Bilirubin 0.3 AST 17 ALT 35 Alkaline Phosphatase 124 H Total Protein 7.3 Albumin 3.9 Triglycerides 115 Cholesterol 205 H LDL Cholesterol, Calc 129 H HDL Cholesterol 52.9 Cholesterol/HDL Ratio 3.87 TSH 2.680 Carbamazepine 10.2 Serum Alcohol Less than 3 Exam Vital signs: Vital Signs 09/17/18 15:10 09/17/18 17:02 09/17/18 18:20 Temperature 98.1 F 98.1 F Pulse Rate 92 H 80 80 Respiratory Rate 17 17 Blood Pressure 127/80 122/90 122/90 Pulse Oximetry 100 98 98 09/18/18 05:59 Temperature 98.3 F Pulse Rate 89 Respiratory Rate 16 Blood Pressure 121/84 Pulse Oximetry 99 Intake & Output 09/17/18 09/18/18 09/18/18 18:59 06:59 18:59 Weight 74.4 kg Other: Weight On Admission 74.4 kg Mental Status Examination Appearance: Other ([facility]) Consciousness: Alert Orientation: Person Motor Activity: Normal gait, Other (stereotypies) Speech: Other (Paucity of speech, some repetitive speech) Language: Perseveration ("I want surf") Fund of Knowledge: Poor Attention and Concentration: Inadequate Memory: Impaired Mood: Anxious Affect: Anxious Thought Process & Associations: Other (Poverty of thought) Thought Content: Obsessions Hallucination Type: None Delusion Type: None Suicidal Ideation: No Suicidal Plan: No Suicidal Intention: No Homicidal Ideation: No Homicidal Plan: No Homicidal Intention: No Insight: Poor Judgment: Poor Assessment and Plan - Assessment (1) Impulse control disorder Code(s): F63.9 - Impulse disorder, unspecified Status: Acute (2) Autism spectrum disorder Code(s): F84.0 - Autistic disorder Status: Acute - Plan Plan: Admit pt to psychiatry unit for safety and stabilization. Will start petition for involuntary hospitalization and request 2nd opinion. Will contact parents for consent for medication. Will continue home medications as is unclear if noncompliance was a contributing factor to decompensation. Pt may benefit from PERRIN. Justification for Continued Inpatient Stay: aggression
[2018-09-18] MEDS: traZODone 50 MG Tablet PO SCH ×2 (21:17→23:35)
[2018-09-18] MEDS: Montelukast 10 MG Tablet PO SCH ×2 (22:31→23:35)
--- NOTE | 2018-09-19 07:46 | P.CONPSY ---
Provisional Diagnosis Admission Date: September 17, 2018 16:21 [place] I.: Impulse control disorder [place] II.: Autism spectrum disorder History of Present Illness Service: Psychiatry Consult date: 09/19/18 Requesting Physician: Leatha Valadez Reason for Consult: Second opinion Primary Care Provider: Forrest Ramos History of Present Illness: Patient is a 33-year-old man, domiciled [facility], with a past psychiatric history of autism, social deficits who was brought in voluntarily dropped off in a [facility] due to increased violence and aggression at home. As per report patient was throwing furniture at staff and other patients breaking objects in the home. Patient was found sitting in day room noted to be superficially cooperative with poor attention span and very concrete thought process due to his intellectual deficits. Patient was encouraged to maintain adherence to medications stating "yeah I take medications". Patient then becomes very distracted when he had lights. Patient has not had any aggressive behavior here on the unit as per report by nursing patient refuse medication last evening. Review of Systems All other systems reviewed negative except as stated in HPI PMFSH - History History Provided By: Patient, Medical Record - Medical / Surgical Hx Neg / Unobtainable Medical Problems Denied: Unable to Obtain - Tobacco History Second Hand Smoke Exposure: No Tobacco Use In Past 30 Days: No Smoking Status: Unknown if ever smoked Tobacco Type: Cigarettes - Alcohol History How Often Do You Have a Drink Containing Alcohol: Unable to Obtain - Substance Use History Substance History: Unable to Obtain - Travel History Recent Travel in the [place] Within the Last 8 Weeks: No Recent Travel Out of the Country Within the Last 8 Weeks: No - Immunization History Tetanus Immunization: Unable to Assess Hx Influenza Vaccine This Season: Unable to Assess Medications and Allergies Active Medications: Active Medications Acetaminophen (Tylenol) 650 mg PO Q4H PRN PRN Reason: Pain 1-5 or Temp >101F Al Hydrox/Mg Hydrox/Simethicone (Mag-Al Plus Susp Liq) 30 ml PO Q6H PRN PRN Reason: DYSPEPSIA Carbamazepine (Tegretol Chewable) 300 mg PO BID [facility] Last Admin: 09/18/18 23:35 Dose: Not Given Cetirizine HCl (Zyrtec) 10 mg PO DAILY [facility] Last Admin: 09/18/18 09:46 Dose: 10 mg Chlorpromazine HCl (Thorazine) 50 mg PO BID [facility] Last Admin: 09/18/18 23:36 Dose: Not Given Lorazepam (Ativan) 1 mg PO BID [facility] Last Admin: 09/18/18 23:34 Dose: Not Given Montelukast Sodium (Singulair) 10 mg PO [facility] Last Admin: 09/18/18 23:35 Dose: Not Given Risperidone (Risperdal) 4 mg PO DAILY [facility] Last Admin: 09/18/18 11:02 Dose: Not Given Risperidone (Risperdal) 2 mg PO [facility] Last Admin: 09/18/18 23:35 Dose: Not Given Trazodone HCl (Desyrel) 150 mg PO [facility] Last Admin: 09/18/18 23:35 Dose: Not Given Allergies Allergy/AdvReac Type Severity Reaction Status Date / Time clarithromycin Allergy Mild Unverified 09/02/17 17:52 dextromethorphan Allergy Mild Unverified 09/02/17 17:52 methylphenidate Allergy Mild Unverified 09/02/17 17:52 pseudoephedrine Allergy Mild Unverified 09/02/17 17:52 Home Medications Medication Instructions Recorded Confirmed Type carbamazepine 300 mg PO BID 09/17/18 09/17/18 History cetirizine 10 mg PO DAILY 09/17/18 09/17/18 History chlorpromazine 50 mg PO BID 09/17/18 09/17/18 History lorazepam [Ativan] 1 mg PO BID 09/17/18 09/17/18 History montelukast 10 mg PO QPM 09/17/18 09/17/18 History risperidone 2 mg PO HS 09/17/18 09/17/18 History risperidone 4 mg PO DAILY 09/17/18 09/17/18 History trazodone 150 mg PO HS 09/17/18 09/17/18 History Exam Vital signs: Vital Signs 09/18/18 18:18 09/19/18 05:45 Temperature 98.7 F 97.2 F L Pulse Rate 95 H 79 Respiratory Rate 19 17 Blood Pressure 122/76 120/78 Pulse Oximetry 97 97 - Constitutional no acute distress, cooperative Mental Status Examination Appearance: Disheveled, Other (wearing hospital pajamas) Consciousness: Alert Orientation: Person Motor Activity: Normal gait, Other (stereotypies) Speech: Other (Paucity of speech, some repetitive speech) Language: Perseveration ("I want surf") Fund of Knowledge: Poor Attention and Concentration: Inadequate Memory: Impaired Mood: Anxious Affect: Anxious Thought Process & Associations: Other (Poverty of thought) Thought Content: Obsessions Hallucination Type: None Delusion Type: None Suicidal Ideation: No Suicidal Plan: No Suicidal Intention: No Homicidal Ideation: No Homicidal Plan: No Homicidal Intention: No Insight: Poor Judgment: Poor Assessment and Plan - Assessment (1) Impulse control disorder Code(s): F63.9 - Impulse disorder, unspecified Status: Acute (2) Autism spectrum disorder Code(s): F84.0 - Autistic disorder Status: Acute - Plan Plan: I have seen and examined this patient, reviewed the documentation, and I agree and concur with Dr. Valadez assessment and plan. I have completed second opinion for the petition for involuntary hospitalization. Consult appreciated. Justification for Continued Inpatient Stay: At risk of further decompensation at lower level care.
[2018-09-19] MEDS: carBAMazepine 100 MG Chewable Tablets PO SCH ×2 (09:38→20:50)
[2018-09-19] MEDS: LORazepam 1 MG Tablet PO SCH ×2 (09:38→20:51)
[2018-09-19] MEDS: ChlorproMAZINE 50 MG Tablet PO SCH ×3 (09:58→20:51)
--- NOTE | 2018-09-19 14:29 | P.PNPSY ---
Subjective Chief Complaint: Aggressive at nursing home facility Remarks: Reviewed electronic medical record and discussed with nursing staff. Rounded with LINA Shahid. Patient is in his room resting. He repeats, " Can I see mommy." Nurses report that last night he refused to take his medications, but this morning he was very cooperative. He is easily redirectable. Eating and sleeping well. Denies SI/HI. Review of Systems All other systems reviewed negative except as stated in HPI Mental Status Examination Appearance: Disheveled, Other ([facility] Consciousness: Alert Orientation: Person Motor Activity: Normal gait, Other (stereotypies) Speech: Other (Paucity of speech, some repetitive speech) Language: Perseveration ("I want surf") Fund of Knowledge: Poor Attention and Concentration: Inadequate Memory: Impaired Mood: Anxious Affect: Anxious Thought Process & Associations: Other (Poverty of thought) Thought Content: Obsessions Hallucination Type: None Delusion Type: None Suicidal Ideation: No Suicidal Plan: No Suicidal Intention: No Homicidal Ideation: No Homicidal Plan: No Homicidal Intention: No Insight: Poor Judgment: Poor Assessment and Plan - Assessment (1) Impulse control disorder Code(s): F63.9 - Impulse disorder, unspecified Status: Acute (2) Autism spectrum disorder Code(s): F84.0 - Autistic disorder Status: Acute - Plan Plan: Continue current treatment and care of plan. Justification for Continued Inpatient Stay: Moving patient to a less restrictive environment may result in his decompensation.
[2018-09-19] MEDS: Montelukast 10 MG Tablet PO SCH (20:51)
[2018-09-19] MEDS: traZODone 50 MG Tablet PO SCH (20:51)
[2018-09-20] MEDS: ChlorproMAZINE 50 MG Tablet PO SCH ×2 (08:33→20:36)
[2018-09-20] MEDS: LORazepam 1 MG Tablet PO SCH ×2 (08:34→20:36)
[2018-09-20] MEDS: carBAMazepine 100 MG Chewable Tablets PO SCH ×2 (08:34→20:35)
--- NOTE | 2018-09-20 11:49 | P.TTN ---
- Patient Problems Problems: 1. Discharge planning 2. Medication compliance 3. Knowledge deficit 4. Lack of coping skills - Progress Toward Goals Provider Present: Dr. Marek Acosta (Patient needs to remain for further stabilization.) Psychiatric Counselors Present: Jose Ritchie Jr., [facility] (Counselor will meet with the patient today just to discuss a safe discharge plan.) Group Spec/RT/OT/MON Present: SHAYAN Diego (Patient attends select groups.) - Documentation Teaching Recipient: Patient
--- NOTE | 2018-09-20 18:20 | P.PNPSY ---
Subjective Chief Complaint: Aggressive at care home facility Remarks: Patient seen for follow-up, chart reviewed. Discussion with nursing staff reported that patient with no behavioral disturbances no aggressive behavior, noted to be preoccupied with masturbation, compliant with medication. Patient was found sitting in the room eating lunch noted be very concrete. Patient unable to engage in interview secondary to intellectual disability but easily redirectable. Patient did comply with medications today. Review of Systems All other systems reviewed negative except as stated in HPI Mental Status Examination Appearance: Other ([facility]) Consciousness: Alert Orientation: Person Motor Activity: Normal gait, Other (stereotypies) Speech: Other (Paucity of speech, some repetitive speech) Language: Perseveration ("I see water") Fund of Knowledge: Poor Attention and Concentration: Inadequate Memory: Impaired Mood: Anxious Affect: Anxious Thought Process & Associations: Other (Poverty of thought,. [place]) Thought Content: Obsessions Hallucination Type: None Delusion Type: None Suicidal Ideation: No Suicidal Plan: No Suicidal Intention: No Homicidal Ideation: No Homicidal Plan: No Homicidal Intention: No Insight: Poor Judgment: Poor Assessment and Plan - Assessment (1) Impulse control disorder Code(s): F63.9 - Impulse disorder, unspecified Status: Acute (2) Autism spectrum disorder Code(s): F84.0 - Autistic disorder Status: Acute - Plan Plan: Patient continues with very concrete thought process secondary to intellectual disability. Patient no aggressive behavior episodes of agitation. Patient has been compliant with medications with direction. Continue current treatment. Continue to monitor with behavior. Discharge planning in progress. Justification for Continued Inpatient Stay: At risk of further decompensation at lower level care.
[2018-09-20] MEDS: Montelukast 10 MG Tablet PO SCH (20:39)
[2018-09-20] MEDS: traZODone 50 MG Tablet PO SCH (20:39)
[2018-09-21] MEDS ORDERED: Haloperidol Inj 5 MG/ML Ampul ONE ×2 (03:54→14:36)
[2018-09-21] MEDS ORDERED: Haloperidol Inj 5 MG/ML Ampul IM ONE (04:00)
[2018-09-21] MEDS: LORazepam 1 MG Tablet PO SCH ×2 (09:02→20:45)
[2018-09-21] MEDS: ChlorproMAZINE 50 MG Tablet PO SCH ×2 (09:03→20:45)
[2018-09-21] MEDS: carBAMazepine 100 MG Chewable Tablets PO SCH ×2 (09:04→20:46)
[2018-09-21] MEDS ORDERED: Haloperidol Inj 5 MG/ML Ampul IM STA (14:35)
--- NOTE | 2018-09-21 14:51 | P.PNPSY ---
I responded to Ramses Coppola called on patient. Per RN, patient returned from x- ray agitated and began throwing chairs, breaking some of them. I have ordered patient medicated with Haldol, Ativan and Benadryl IM ETO and have ordered initiation of locked seclusion. I was present on the unit at initiation of seclusion and evaluated patient [id number] immediately following initiation of seclusion. Patient remains agitated and behaviorally dysregulated. He threw his mattress in the seclusion room. I have notified Dr. Acosta, who is attending patient's case, of the above.
--- NOTE | 2018-09-21 15:05 | XR ---
EXAM DATE: 09/21/2018 2:35 PM EST AGE/SEX: 33 years / Male INDICATIONS: Left hand pain/bruising across posterior 2nd metacarpal. CLINICAL DATA: This is the patient's initial encounter. Patient reports that signs and symptoms have been present for 1 day and indicates a pain score of 3/10. MEDICAL/SURGICAL HISTORY: . Unobtainable. . Unobtainable. COMPARISON: No prior exams available for comparison. FINDINGS: Bony structures are intact and in normal alignment. Osseous density is normal. Soft tissues are unre markable. No radiopaque foreign bodies seen. CONCLUSION: Negative examination Electronically signed by: Donald Phelps MD 09/21/2018 3:04 PM EST
--- NOTE | 2018-09-21 15:06 | XR ---
EXAM DATE: 09/21/2018 2:37 PM EST AGE/SEX: 33 years / Male INDICATIONS: Right hand pain after hitting a wall. CLINICAL DATA: This is the patient's initial encounter. Patient reports that signs and symptoms have been present for 1 day and indicates a pain score of 6/10. MEDICAL/SURGICAL HISTORY: . Unobtainable. . Unobtainable. COMPARISON: None. FINDINGS: Bony structures are intact and in normal alignment. Osseous density is normal. Soft tissues are unre markable. No radiopaque foreign bodies seen. CONCLUSION: Negative examination Electronically signed by: Donald Phelps MD 09/21/2018 3:05 PM EST
--- NOTE | 2018-09-21 15:37 | P.PNPSY ---
Subjective Chief Complaint: Aggressive at [facility] facility Remarks: Patient seen for follow-up, chart reviewed. Discussion with nursing staff reported that patient received ETO last night, had woken up at 4 AM asking for his mother and began punching and kicking lr but was able to cease after brief provided medications to address his symptoms. Patient was later found lying hospital bed was able to wake up to interact with interview although continues with very concrete interactions as patient's intellectual disability preclude from any meaningful discussion. Patient mentions wanting to see his mother who was allowed to the dayroom to have his lunch. Collateral formation from patient's mother reported that patient had been in his new [facility] since July and had recent episodes of agitation which prompted his admission. Plan of modifying medication was reviewed with mother. She is aware that patient will present to mental health court tomorrow for involuntary admission and will be present tomorrow. I was notified later by Dr. Oswald of patient having another episode of agitation after attempt to bring patient to x-ray for imaging of his hands and feet were unsuccessful and upon returning from the unit began to require seclusion and ETO. Review of Systems All other systems reviewed negative except as stated in HPI Mental Status Examination Appearance: Other (wearing hospital pajamas) Consciousness: Alert Orientation: Person Motor Activity: Normal gait, Other (stereotypies) Speech: Other (Paucity of speech, some repetitive speech) Language: Perseveration ("I see water") Fund of Knowledge: Poor Attention and Concentration: Inadequate Memory: Impaired Mood: Anxious Affect: Anxious Thought Process & Associations: Other (Poverty of thought,. [place]) Thought Content: Obsessions Hallucination Type: None Delusion Type: None Suicidal Ideation: No Suicidal Plan: No Suicidal Intention: No Homicidal Ideation: No Homicidal Plan: No Homicidal Intention: No Insight: Poor Judgment: Poor Assessment and Plan - Assessment (1) Impulse control disorder Code(s): F63.9 - Impulse disorder, unspecified Status: Acute (2) Autism spectrum disorder Code(s): F84.0 - Autistic disorder Status: Acute - Plan Plan: Patient continues with these episodes of agitation secondary to frustration intolerance, and portables control secondary to intellectual disability. We will attempt to have patient have portable x-rays done on the unit as he is unable to tolerate being taken to x-ray department. We will increase Tegretol to 300 mg a.m./350 mg at bedtime for mood stabilization. We will continue rest of medications. We will continue to monitor mood and behavior. Patient will present to mental health court tomorrow. Discharge planning in progress. Justification for Continued Inpatient Stay: At risk of further decompensation at lower level care.
[2018-09-21] MEDS: Montelukast 10 MG Tablet PO SCH (20:45)
[2018-09-21] MEDS: traZODone 50 MG Tablet PO SCH (20:45)
[2018-09-22] MEDS: LORazepam 1 MG Tablet PO SCH ×2 (08:31→21:00)
[2018-09-22] MEDS: ChlorproMAZINE 50 MG Tablet PO SCH ×2 (08:31→21:01)
[2018-09-22] MEDS: carBAMazepine 100 MG Chewable Tablets PO SCH ×2 (08:31→21:00)
[2018-09-22] MEDS: ChlorproMAZINE 25 MG Tablet PO SCH (14:33)
--- NOTE | 2018-09-22 15:05 | XR ---
EXAM DATE: 09/22/2018 2:54 PM EST AGE/SEX: 33 years / Male INDICATIONS: Nurse states that he was kicking things in psych CLINICAL DATA: This is the patient's initial encounter. Patient reports that signs and symptoms have been present for 3 days and indicates a pain score of Nonresponsive. MEDICAL/SURGICAL HISTORY: Non-responsive. Non-responsive. COMPARISON: No prior exams available for comparison. FINDINGS: Bony structures are intact and in normal alignment. Osseous density is normal. Soft tissues are unre markable. No radiopaque foreign bodies seen. CONCLUSION: Negative examination Electronically signed by: Donald Phelps MD 09/22/2018 3:04 PM EST
--- NOTE | 2018-09-22 15:07 | XR ---
EXAM DATE: 09/22/2018 2:57 PM EST AGE/SEX: 33 years / Male INDICATIONS: Nurse states that he was kicking things in the psych [place]. CLINICAL DATA: This is the patient's initial encounter. Patient reports that signs and symptoms have been present for 3 days and indicates a pain score of Nonresponsive. MEDICAL/SURGICAL HISTORY: Non-responsive. Non-responsive. COMPARISON: No prior exams available for comparison. FINDINGS: Bony structures are intact and in normal alignment. Osseous density is normal. Soft tissues are unre markable. No radiopaque foreign bodies seen. CONCLUSION: Negative examination Electronically signed by: Donald Phelps MD 09/22/2018 3:05 PM EST
--- NOTE | 2018-09-22 16:09 | P.PNPSY ---
Subjective Chief Complaint: Aggressive at [facility] facility Remarks: Patient seen for follow-up, chart reviewed. Discussion with nursing staff reported that patient and required ETO after attempts to have patient have imaging done and agitated to the patient. Patient was not able to present to mental health court due to patient recent patient. Patient was found later lying in hospital bed was able to wake up and requested to go to the room to watch television has cereal which she was provided with and had good behavioral control with no episodes of agitation. Patient also was able to tolerate foot x -rays on the unit without agitation. Patient was maintained for involuntary hospitalization through mental health court for further stabilization. Review of Systems All other systems reviewed negative except as stated in HPI Mental Status Examination Appearance: Other (wearing hospital pajamas) Consciousness: Alert Orientation: Person Motor Activity: Normal gait, Other (stereotypies) Speech: Other (Paucity of speech, some repetitive speech) Language: Perseveration ("I want cereal") Fund of Knowledge: Poor Attention and Concentration: Inadequate Memory: Impaired Mood: Anxious Affect: Anxious Thought Process & Associations: Other (Poverty of thought,. [place]) Thought Content: Obsessions Hallucination Type: None Delusion Type: None Suicidal Ideation: No Suicidal Plan: No Suicidal Intention: No Homicidal Ideation: No Homicidal Plan: No Homicidal Intention: No Insight: Poor Judgment: Poor Assessment and Plan - Assessment (1) Impulse control disorder Code(s): F63.9 - Impulse disorder, unspecified Status: Acute (2) Autism spectrum disorder Code(s): F84.0 - Autistic disorder Status: Acute - Plan Plan: Patient continues with concrete thought processes, continues with poor impulse control and volatility when upset becomes aggressive. Patient was able to tolerate x-ray this afternoon with no altercation or agitation. Patient was started with Thorazine 25 mg p.o. daily at 3 PM along with continued rest of medications. We will continue to monitor mood and behavior. Discharge planning in progress. Justification for Continued Inpatient Stay: At risk of further decompensation at lower level care.
[2018-09-22] MEDS: traZODone 50 MG Tablet PO SCH (21:00)
[2018-09-22] MEDS: Montelukast 10 MG Tablet PO SCH (21:00)
[2018-09-23] MEDS: carBAMazepine 100 MG Chewable Tablets PO SCH ×2 (08:33→20:44)
[2018-09-23] MEDS: ChlorproMAZINE 50 MG Tablet PO SCH ×2 (08:37→20:44)
[2018-09-23] MEDS: LORazepam 1 MG Tablet PO SCH ×2 (08:37→20:43)
--- NOTE | 2018-09-23 11:17 | P.PNPSY ---
Subjective Chief Complaint: Aggressive at intermediate facility Remarks: Patient seen for follow-up, chart reviewed. Discussion with nursing staff reported that patient no behavioral changes, no episodes of agitation irritability, slept well last evening and showered yesterday. Patient was found ambulating in the hallway asking to go to the day room to watch television states that he is taking his medications that he slept well with no physical complaints. Patient continues with concrete responses secondary intellectual disability. Review of Systems All other systems reviewed negative except as stated in HPI Mental Status Examination Appearance: Appropriate, Other ([facility]) Consciousness: Alert Orientation: Person Motor Activity: Normal gait, Other (stereotypies) Speech: Other (Paucity of speech, some repetitive speech) Language: Perseveration ("I want cereal") Fund of Knowledge: Poor Attention and Concentration: Inadequate Memory: Impaired Mood: Appropriate Affect: Appropriate Thought Process & Associations: Other (Poverty of thought,. [place]) Thought Content: Preoccupations (With watching television) Hallucination Type: None Delusion Type: None Suicidal Ideation: No Suicidal Plan: No Suicidal Intention: No Homicidal Ideation: No Homicidal Plan: No Homicidal Intention: No Insight: Poor Judgment: Poor Assessment and Plan - Assessment (1) Impulse control disorder Code(s): F63.9 - Impulse disorder, unspecified Status: Acute (2) Autism spectrum disorder Code(s): F84.0 - Autistic disorder Status: Acute - Plan Plan: Patient at this time with no behavioral disturbances since yesterday was able to tolerate x-ray yesterday as well. We will continue current treatment. We will order repeat Tegretol level tomorrow morning prior to morning dose as recent level noted to be slightly supratherapeutic at 12.6. We will repeat blood level to confirm that this level is accurate. We will continue to monitor mood and behavior. Discharge planning in progress. Justification for Continued Inpatient Stay: At risk of further decompensation at lower level care.
[2018-09-23] MEDS: ChlorproMAZINE 25 MG Tablet PO SCH (14:23)
[2018-09-23] MEDS: Montelukast 10 MG Tablet PO SCH (20:43)
[2018-09-23] MEDS: traZODone 50 MG Tablet PO SCH (20:44)
[2018-09-24] MEDS: LORazepam 1 MG Tablet PO SCH ×2 (08:30→20:35)
[2018-09-24] MEDS: ChlorproMAZINE 50 MG Tablet PO SCH ×2 (08:30→20:35)
[2018-09-24] MEDS: carBAMazepine 100 MG Chewable Tablets PO SCH ×2 (08:30→20:34)
[2018-09-24] MEDS: ChlorproMAZINE 25 MG Tablet PO SCH (15:10)
[2018-09-24] MEDS: traZODone 50 MG Tablet PO SCH (20:34)
[2018-09-24] MEDS: Montelukast 10 MG Tablet PO SCH (20:35)
--- NOTE | 2018-09-24 21:16 | P.PNPSY ---
Subjective Chief Complaint: Aggressive at [facility] facility Remarks: Patient seen for follow-up, chart reviewed. Discussion with nursing staff reported that patient has been doing well, continue to be concrete to behavioral disturbances. Patient was found in the dayroom watching television. Patient is a very concrete with his responses, continues to be calm and cooperative and compliant with medications. No behavioral disturbances. Review of Systems All other systems reviewed negative except as stated in HPI Mental Status Examination Appearance: Appropriate, Other ([facility] Consciousness: Alert Orientation: Person Motor Activity: Normal gait, Other (stereotypies) Speech: Other (Paucity of speech, some repetitive speech) Language: Perseveration ("I want cereal") Fund of Knowledge: Poor Attention and Concentration: Inadequate Memory: Impaired Mood: Appropriate Affect: Appropriate Thought Process & Associations: Other (Poverty of thought,. [place]) Thought Content: Preoccupations (With watching television) Hallucination Type: None Delusion Type: None Suicidal Ideation: No Suicidal Plan: No Suicidal Intention: No Homicidal Ideation: No Homicidal Plan: No Homicidal Intention: No Insight: Poor Judgment: Poor Assessment and Plan - Assessment (1) Impulse control disorder Code(s): F63.9 - Impulse disorder, unspecified Status: Acute (2) Autism spectrum disorder Code(s): F84.0 - Autistic disorder Status: Acute - Plan Plan: He has not had no behavioral disturbances, has been cooperative with medications and staff. Allowing for staff with hygiene. Repeat Tegretol level was within therapeutic limits (10.7). We will continue current treatment. Continue to monitor mood and behavior. Discharge planning in progress. Justification for Continued Inpatient Stay: At risk of further decompensation at lower level care.
[2018-09-25] MEDS: carBAMazepine 100 MG Chewable Tablets PO SCH ×2 (08:17→20:32)
[2018-09-25] MEDS: ChlorproMAZINE 50 MG Tablet PO SCH ×2 (08:18→20:32)
[2018-09-25] MEDS: LORazepam 1 MG Tablet PO SCH ×2 (08:18→20:31)
--- NOTE | 2018-09-25 13:45 | P.PNPSY ---
Subjective Chief Complaint: Aggressive at senior living facility Remarks: Reviewed electronic medical records and discussed case with staff. Follow-up was conducted in the patient's room with LINA Hernandez present. Patient spent sleeping well and has been compliant with his medications. Nurse reports no behavioral disturbances. Mental Status Examination Appearance: Appropriate, Other (wearing hospital pajamas) Consciousness: Alert Orientation: Person Motor Activity: Normal gait, Other (stereotypies) Speech: Other (Paucity of speech, some repetitive speech) Language: Perseveration ("I want cereal") Fund of Knowledge: Poor Attention and Concentration: Inadequate Memory: Impaired Mood: Appropriate Affect: Appropriate Thought Process & Associations: Other (Poverty of thought,. [place]) Thought Content: Preoccupations (With watching television) Hallucination Type: None Delusion Type: None Suicidal Ideation: No Suicidal Plan: No Suicidal Intention: No Homicidal Ideation: No Homicidal Plan: No Homicidal Intention: No Insight: Poor Judgment: Poor Assessment and Plan - Assessment (1) Impulse control disorder Code(s): F63.9 - Impulse disorder, unspecified Status: Acute - Plan Plan: Patient will be reevaluated by the attending psychiatrist. Continue with current treatment plan. Justification for Continued Inpatient Stay: Moving this patient to a less restrictive environment would likely result in decompensation.
[2018-09-25] MEDS: ChlorproMAZINE 25 MG Tablet PO SCH (16:11)
[2018-09-25] MEDS: Montelukast 10 MG Tablet PO SCH (20:31)
[2018-09-25] MEDS: traZODone 50 MG Tablet PO SCH (20:32)
[2018-09-26 06:17] VITALS: O2SAT 100
[2018-09-26] MEDS: carBAMazepine 100 MG Chewable Tablets PO SCH ×2 (08:15→21:08)
[2018-09-26] MEDS: LORazepam 1 MG Tablet PO SCH ×2 (08:20→21:07)
[2018-09-26] MEDS: ChlorproMAZINE 50 MG Tablet PO SCH ×2 (08:20→21:08)
--- NOTE | 2018-09-26 09:32 | P.PNPSY ---
Subjective Chief Complaint: Aggressive at long term facility Remarks: Reviewed electronic medical records and discussed case with staff. Follow-up was conducted in the day room. Patient is childlike. Repeating that he wants to go to the beach. Nursing reports that his behavior was a problem the other day and he throwing chairs. There have been no behavioral concerns in the past 24 hours. Eating and sleeping well. Conducts hygiene with assistance. Review of Systems All other systems reviewed negative except as stated in HPI Mental Status Examination Appearance: Appropriate, Other (wearing [facility]) Consciousness: Alert Orientation: Person Motor Activity: Normal gait, Other (stereotypies) Speech: Other (Paucity of speech, some repetitive speech) Language: Perseveration ("I want cereal") Fund of Knowledge: Poor Attention and Concentration: Inadequate Memory: Impaired Mood: Appropriate Affect: Appropriate Thought Process & Associations: Other (Poverty of thought,. [place]) Thought Content: Preoccupations (With watching television) Hallucination Type: None Delusion Type: None Suicidal Ideation: No Suicidal Plan: No Suicidal Intention: No Homicidal Ideation: No Homicidal Plan: No Homicidal Intention: No Insight: Poor Judgment: Poor Assessment and Plan - Assessment (1) Impulse control disorder Code(s): F63.9 - Impulse disorder, unspecified Status: Acute (2) Autism spectrum disorder Code(s): F84.0 - Autistic disorder Status: Acute - Plan Plan: Patient will be reevaluated by the attending psychiatrist. Continue with current treatment plan. Justification for Continued Inpatient Stay: Moving patient to a less restrictive environment may result in his decompensation.
[2018-09-26] MEDS: ChlorproMAZINE 25 MG Tablet PO SCH (14:31)
[2018-09-26 16:52] VITALS: RESP 18
[2018-09-26] MEDS: traZODone 50 MG Tablet PO SCH (21:08)
[2018-09-26] MEDS: Montelukast 10 MG Tablet PO SCH (21:08)
[2018-09-27 06:12] VITALS: BP 113/71; PULSE 100; TEMP 98
[2018-09-27] MEDS: ChlorproMAZINE 50 MG Tablet PO SCH (08:34)
[2018-09-27] MEDS: LORazepam 1 MG Tablet PO SCH (08:34)
[2018-09-27] MEDS: carBAMazepine 100 MG Chewable Tablets PO SCH (08:34)
--- NOTE | 2018-09-27 09:00 | P.TTN ---
- Patient Problems Problems: 1. Discharge planning 2. Medication compliance 3. Knowledge deficit 4. Lack of coping skills - Progress Toward Goals Provider Present: Dr. Marek Acosta (Patient meets criteria for discharge.) Psychiatric Counselors Present: Jose Ritchie Jr., [facility] (Patient will return to his snf in the [facility] today.) Group Spec/RT/OT/MON Present: SHAYAN Diego (Patient attends select groups.), ELIESER Fernandez (Patient does not attend groups.) - Documentation Teaching Recipient: Patient
[2018-09-27] MEDS: ChlorproMAZINE 25 MG Tablet PO SCH (14:44)
--- NOTE | 2018-09-27 15:55 | P.DSPSY ---
Psychiatry Discharge Summary Inpatient Psychiatric care?: Yes Advance Directives: No Mental Health Advance Directive: No Health Care Proxy: No - Admission Admission Date: September 17, 2018 16:21 - Admission Diagnosis (1) Autism spectrum disorder Code(s): F84.0 - Autistic disorder Brief History: Pt is a 33 YOAM with hx of Autism Spectrum Disorder, Severe and intellectual disability. He was admitted for agitation and aggression at retirement facility. He allegedly became violent and threw furniture and chairs. He has been calm today and not aggressive. He has been intrusive with others and corners MD on unit aggressively posturing, but was easily redirected "look over there." He has been fixated on [place] and has required close redirection from staff. Later upon approach by MD, pt is very friendly and smiles. "[place]! I want [place]!"He is well known to service due to previous admissions. His parents are elderly and unable to care for pt. Tobacco Use In Past 30 Days: No How Often Do You Have a Drink Containing Alcohol: Unable to Obtain Hospital Course: Patient is a 33-year-old man, domiciled retirement, with a past psychiatric history of autism, social deficits who was brought in voluntarily dropped off in a retirement due to increased violence and aggression at home; as per report patient was throwing furniture at staff and other patients breaking objects in the home which patient was admitted to the inpatient psychiatry unit for further evaluation and management. Patient was admitted to a locked, inpatient psychiatric unit. Appropriate precautions were in place throughout patient's hospital stay. Patient was seen and examined on the unit by psychiatry. Psychotropic medications were adjusted. There was no evidence of any suicidality or homicidality on the inpatient unit. Patient's mood improved and no longer having episodes of agitagtion, with the benefit of psychopharmacological treatment and had no further behavioral disturbance since admission. Patient was noted to have reached stable mood, noted to participate and engage in treatment and interact with staff adequately in the context of his intellecual disability. Counselor has arranged discharge plan which patient will be returning back to his retirement.. On the day of discharge: Patient seen and examined; chart reviewed. Case discussed with nurse and counselor. No behavioral issues overnight. On my examination today, the patient denies any suicidal homicidal ideation, intent or plan on direct questioning and contracts for safety. No physical complaints. Suicide and violence risk assessment on day of discharge both suggest lower imminent risk, and the patient's level of function is adequate for plan level of outpatient care. Patient has maximized benefit from this inpatient psychiatric hospital stay and will be discharged with discharge plan as arranged by counselor. Patient advised to return to psychiatric emergency room for any concerning psychiatric symptoms. - Discharge Discharge Date: 09/27/18 Discharge Disposition: [facility] - Discharge Instructions Discharge Diet: Heart Healthy Diet Activities You Can Perform: Weight Bearing As Tolerat - Discharge Time > 30 minutes Mental Status Examination Appearance: Appropriate Consciousness: Alert Orientation: Person Motor Activity: Normal gait, Other (stereotypies) Speech: Other (Paucity of speech, some repetitive speech) Language: Perseveration ("I want cereal") Fund of Knowledge: Poor Attention and Concentration: Inadequate Memory: Impaired Mood: Appropriate Affect: Appropriate Thought Process & Associations: Other (Poverty of thought,. [place]) Thought Content: Preoccupations (With watching television) Hallucination Type: None Delusion Type: None Suicidal Ideation: No Suicidal Plan: No Suicidal Intention: No Homicidal Ideation: No Homicidal Plan: No Homicidal Intention: No Insight: Poor Judgment: Poor Discharge/Advance Care Plan - Results Vital Signs: Last Vital Signs Temp 98.0 F 09/27/18 06:00 Pulse 100 H 09/27/18 06:00 Resp 18 09/26/18 16:50 BP 113/71 09/27/18 06:00 Pulse Ox 100 09/26/18 16:50 Lab Results: Laboratory Results Hemoglobin A1c 5.3 % (4.3-6.0) 09/18/18 08:30 Triglycerides 115 mg/dL (42-150) 09/18/18 08:30 Cholesterol 205 mg/dL (120-200) H 09/18/18 08:30 LDL Cholesterol, Calc 129 mg/dL (0-99) H 09/18/18 08:30 HDL Cholesterol 52.9 mg/dL (40.0-60.0) 09/18/18 08:30 TSH 2.680 uIU/mL (0.358-3.740) 09/17/18 13:07 Summary of Procedures: none Imaging: ITS Impressions Hand X-Ray 09/21/18 00:00 CONCLUSION: Negative examination Foot X-Ray 09/22/18 00:00 CONCLUSION: Negative examination Pending Results: None - Medications Number of antipsychotic medications at discharge: 2 - Discharge Care Plan Goals to Promote Your Health: * To prevent worsening of your condition and complications * To maintain your health at the optimal level Directions to Meet Your Goals: Take your medications as prescribed Follow your dietary instruction Follow activity as directed Keep your appointments as scheduled Take your immunizations and boosters as scheduled If your symptoms worsen call your PCP, if no PCP go to Urgent Care Center or Emergency Room For 25/05 questions related to your inpatient stay or results of tests pending at discharge, please contact Dr. Amor Acosta MD at Smoking is Dangerous to Your Health. Avoid second hand smoking
== END 2018-09-27 18:10 ==
LOC: NEPJ 10:32 → NEDA 16:21 → H270 16:50
PROVIDERS: ADMIT Student in an Organized Health Care Education/Training Program; ATTEND Student in an Organized Health Care Education/Training Program